=== PATIENT | female | born 1965 | race African-American/Black ===

== ENCOUNTER → 2016-09-17 | Outpatient (CLI) | payer OTHER ==
[~2016-09-17] VITALS: Ht 152.4 cm; Wt 70.9 kg
[~2016-09-17] MED LIST: ACCUNEB SO1.25 MG/1 INH; ACETAMINOPHEN325 M1 PO; ALEVE220 M1 PO; AMLODIPINE-BEN1 EAC5 PO; AZOR 10-20 MG1 EACH PO; COLACE 100 MG100 MG PO; COLACE100 MG PO; DILAUDID 2 MG TA2 MG PO; EXCEDRIN CAPLE1 EACH PO; GLUCOPHAGE1000 MG PO; HYDROCHLOROTHIA25 M1 PO; HYDROXYZINE HCL25 M1 PO; IBUPROFEN 800800 M1 PO; JANUVIA25 MG PO; LIDODERM 5%1 PATC1 TRANSDERM; LORATIDINE 10 M10 M1 PO; METHADONE HCL 110 M1 PO; METHOCARBAMOL750 MG PO; MIRALAX17 GM PO; MOM PO; NAPROSYN250 MG PO; NEURONTIN 300300 M1 PO; NEURONTIN 400M400 M2 PO; NEURONTIN600 MG PO; NORFLEX100 MG PO; OMEPRAZOLE 20 M20 M1 PO; ONDANSETRON HCL4 M2 PO; ORPHENADRINE C100 M2 PO; OXYCODONE HCL 55 MG PO; OXYCODONE HCL10 MG PO; OXYCODONE HCL5 MG PO; OXYCODONE-APAP1 EAC4 PO; OXYCONTIN10 M1 PO; PENICILLIN VK500 MG PO; PROTONIX40 M1 PO; ROBAXIN 750 MG750 MG PO; SENNA PO; T:SLIM1 EAC1 SUBQ; [UNRECOGNIZED DRUG - OTHER] PO
--- NOTE | ~2016-09-17 | HPC ---
[facility] [place] [address] PAIN MANAGEMENT CONSULTATION Name: EVI HILL Room #: REG [facility] M.R.#: [id number] Admission: 09/17/16 Attend Phys: Morteza Shea MD Discharge: Date of : 63 Report #: [id number] THIS REPORT FOR: //name// CC: Magaly Shea Anthony PINEDA DATE OF SERVICE: 09/17/2016 DATE OF SERVICE: 09/17/2016 Followup visit for adjustment of spinal cord stimulator and management of high risk medications. The patient returns to pain clinic today walking with a cane. She has had periods where she has done quite a bit better since her stimulator placement, but has recently been complaining of increased pain, quite severe exacerbation of radiculopathy. She has had some trouble getting coverage in her right leg with her stimulator and her [employer] school admissions representative here today reprogrammed her spinal cord stimulator. Pain score is 7/10, aching and throbbing, worse with standing and walking. She continues on some medication, which I provide for her under terms of an opioid agreement. CURRENT MEDICATIONS: Currently prescribed are OxyContin 10 mg b.i.d., oxycodone 10 every q. 6 hours, gabapentin 600 mg t.i.d., orphenadrine at h.s. RECOMMENDATIONS: I have agreed to provide her with oxycodone continuing for another couple of months, but I would like her to begin the tapering. We can let her use long-acting during the day and she can still use for breakthrough tablets. I will give her total of 50 mg of oxycodone or MME of 75 mg per day. Our goal, we continue tapering medication. We talked about the importance of trying to regain ____. She does have ____ goals, so we will keep trying to see if she can accomplish that. PHYSICAL EXAMINATION: She is pleasant. She is more relax and I have seen her in some time. Her blood pressure is 142/82, heart rate is 93 and BMI is 30.5. She is able to move from a sitting to standing position, but walks with a cane and she has antalgic features. She has limited range of motion. Back remains tender. Straight leg raising is positive. IMPRESSION: 1. Chronic intractable low back pain with radiculopathy status post spinal cord [address] [address] PAIN MANAGEMENT CONSULTATION Name: EVI HILL Room #: REG [facility] Obdulia.#: [id number] Admission: 09/17/16 Attend Phys: Morteza Shea MD Discharge: Date of : 63 Report #: [id number] stimulator placement. 2. Management of high risk medication. 3. History of depression. 4. Hypertension. 5. Gastroesophageal reflux disease. 6. Insulin-dependent diabetes on insulin pump. PLAN: Follow up in 2 months. Two months worth of medication is provided. RECOMMENDATIONS: Today, I reviewed important issues related to the use of opioids and other potent, centrally-acting medications for the treatment of pain. Rationale for the use of medication is to reduce pain and improve daily activities and function. These activities, individualized for each patient, include simple activities of daily living, improvement in work capabilities, increased involvement in family and other social activities. Improvement in psychosocial elements of chronic pain were discussed in a broader conversation of wellness that included nonpharmacologic measures to manage pain, suffering and efforts to enhance well being. Remaining as physically active as possible for age and ability plays a tremendous role in the management of chronic pain. This was encouraged. We reviewed potential medication side effects, toxicities and drug interactions, employing strategies to manage problems identified. Pain medications have potential side effects, and patients should exercise caution when operating machinery or driving. We discussed in detail the dramatic increase in the Emergency Room visits, hospitalizations and deaths related to misuse and diversion of prescription pain medications in [place]. This opioid crisis in [place] requires both physicians and patients alike to safely use all medications. Safeguarding of medications by keeping them safely locked up or out of reach of others is a critical patient responsibility to ensure that medications are not diverted to others. We discussed the Center for Disease Control (CDC) guidelines for safe use of opioids and the efforts to standardize opioid prescribing to prevent complications. These include guidelines which we strive to meet. They include the standardization of various opioids to morphine milligram equivalents (MME) and also stress the use of the lowest effective dose. Efforts to remain within daily maximum dosing guidelines will also be of focus of treatment. Addiction versus therapeutic use of medication includes routine followup, single prescriber, single pharmacy and the use of random drug screens and other tools to ensure safe prescribing. A signed agreement outlying these issues has been reviewed and remains on the patient chart. Prescriptions were provided today under terms of that agreement, and followup for her is planned in 3 months. I have also given her information regarding programs that are available through [facility] and suggested either chair yoga as the start for mobility or pablito chi. <ELECTRONICALLY SIGNED> By: Morteza Shea MD 10/10/16 1130 [id number] Morteza Shea MD /nt
[2016-09-17 11:28] VITALS: BP 142/84
== END | disposition home or self-care (01) ==
LOC: PAIN 06:40
DX: M54.16 Radiculopathy, lumbar region (principal); G89.29 Other chronic pain; I10 Essential (primary) hypertension; E11.9 Type 2 diabetes mellitus without complications; F32.9 Major depressive disorder, single episode, unspecified; K21.9 Gastro-esophageal reflux disease without esophagitis; F17.200 Nicotine dependence, unspecified, uncomplicated; Z79.4 Long term (current) use of insulin; Z96.9 Presence of functional implant, unspecified

== ENCOUNTER → 2017-02-11 | Outpatient (CLI) | payer OTHER ==
[~2017-02-11] VITALS: Ht 152.4 cm; Wt 72.1 kg
--- NOTE | ~2017-02-11 | HPC ---
[facility] [address] [address] PAIN MANAGEMENT CONSULTATION Name: EVI HILL Room #: REG [facility]..#: [id number] Admission: 02/11/17 Attend Phys: Morteza Shea MD Discharge: Date of : 63 Report #: [id number] THIS REPORT FOR: //name// CC: Magaly Shea DATE OF SERVICE: 02/11/2017 Followup visit for post-laminectomy syndrome. The patient returns to pain clinic today for renewal of medication under terms of our opioid agreement. She is currently taking OxyContin 10 mg b.i.d. and oxycodone IR one 10 mg tablet 4-5 times daily. This is a total therefore of 60 mg of oxycodone equal to 90 morphine milligram equivalents right at the CDC guideline top level recommendation. Urine drug screen will be performed today. We talked about the importance of safeguarding her medication. We have given her physical therapy in the past and have asked her to continue to follow up on that. She says the pain score today is 6/10. She has still ongoing low back pain, bilateral leg pain with throbbing all the way to her toes. She seems better; however, and moves with a little bit more ease. PHYSICAL EXAMINATION: VITAL SIGNS: Blood pressure 152/78, heart rate 91. BMI is 31. She is wearing dark glasses in the office. She has tenderness across her low back. Straight leg raising is positive. IMPRESSION: 1. Post-laminectomy syndrome with radiculopathy. 2. Status post [employer] spinal cord stimulator placement. 3. Management of high risk medication. 4. Depression and anxiety. Followup visit is planned in 3 months. Urine drug screen will be reviewed before that office visit. By: [id number] Morteza Shea MD /nt
[2017-02-11 11:11] VITALS: BP 152/78
== END | disposition home or self-care (01) ==
LOC: PAIN 06:41
DX: M96.1 Postlaminectomy syndrome, not elsewhere classified (principal); M54.16 Radiculopathy, lumbar region; Z98.890 Other specified postprocedural states; F11.20 Opioid dependence, uncomplicated; F32.89 Other specified depressive episodes; F41.9 Anxiety disorder, unspecified; F17.200 Nicotine dependence, unspecified, uncomplicated; Z88.8 Allergy status to other drugs, medicaments and biological substances; Z79.899 Other long term (current) drug therapy

== ENCOUNTER → 2017-04-08 | Outpatient (CLI) | payer OTHER ==
[~2017-04-08] VITALS: Ht 152.4 cm; Wt 72.6 kg
[~2017-04-08] MED LIST changes: +GLIPIZIDE ER10 MG PO
--- NOTE | ~2017-04-08 | HPC ---
[facility] [address] [address] PAIN MANAGEMENT CONSULTATION Name: EVI HILL Room #: REG [facility] M..#: [id number] Admission: 04/08/17 Attend Phys: Morteza Shea MD Discharge: Date of : 63 Report #: [id number] THIS REPORT FOR: //name// CC: Magaly Shea DATE OF SERVICE: 04/08/2017 DATE OF SERVICE: 04/08/2017 Followup visit for post-laminectomy syndrome, now with complaints of bilateral thumb pain. HISTORY OF PRESENT ILLNESS: The patient returns to clinic today with her sister. She was in clinic for a 25-minute consultation about her chronic pain. We spent a good deal of that time talking about opioids, proper use, safeguarding, opioid crisis, guidelines, managing side effects. The patient reports that she gets important relief from her pain medication, which allows her to do more during the day. She denies any significant side effects and she understands how critical it is for her to safeguard her medication. Her daily dose is 75 morphine milligram equivalents. She takes a single OxyContin per day to help her through the day and then uses oxycodone 10 for breakthrough pain, no more than 4 times daily. This totals 50 mg of oxycodone, which is a morphine milligram equivalent of 75 under the CDC guideline. Urine drug screens have been performed and we will continue to keep a close eye on her use. She has been given the advice to use the lowest effective dose. I explained the possibility of injecting along the flexor tendon of the left thumb and right thumb where she has maximal tenderness and likely tenosynovitis. She is not interested in injections and she was therefore referred for an evaluation and treatment by the occupational therapist at the [facility]. Hand therapy and ____ was suggested and modalities p.r.n. In order to illustrate the importance of using her medication carefully, we reviewed a couple of examples of patients who developed addictive behaviors. Her sister feels that she is using appropriately and seen no addiction or opioid use disorder type behavior. She has been on time for her medication. PHYSICAL EXAMINATION: Affect is pleasant, alert and oriented. She complains of very little pain in her back and her leg at this time. She has tenderness bilaterally over the thenar eminence. This extends up into the thumb. She has a weak lace roller. Sensation is intact. There are no palpable nodules, no swelling or inflammation. [facility] [address] [place] [address] PAIN MANAGEMENT CONSULTATION Name: EVI HILL Room #: REG CL Richard.#: [id number] Admission: 04/08/17 Attend Phys: Morteza Shea MD Discharge: Date of : 63 Report #: [id number] IMPRESSION: 1. Bilateral tenosynovitis of the thumb. 2. Chronic back pain, post-laminectomy syndrome. 3. Management of high risk medication. 4. Depression and anxiety, improved. Medications were prescribed today under terms of our agreement, OxyContin 10 mg morning, oxycodone 10 no more than 4 to 5 tablets daily and she was prescribed 130 tablets per month. Followup visit is scheduled in 3 months. By: [id number] Morteza Shea MD /nt
[2017-04-08 10:12] VITALS: BP 143/68
== END | disposition home or self-care (01) ==
LOC: PAIN 03-11 08:26
DX: Z76.0 Encounter for issue of repeat prescription (principal); M65.842 Other synovitis and tenosynovitis, left hand; M65.841 Other synovitis and tenosynovitis, right hand; M96.1 Postlaminectomy syndrome, not elsewhere classified; G89.29 Other chronic pain; F32.89 Other specified depressive episodes; F41.8 Other specified anxiety disorders; F17.210 Nicotine dependence, cigarettes, uncomplicated; Z79.891 Long term (current) use of opiate analgesic; Z88.8 Allergy status to other drugs, medicaments and biological substances; Z98.890 Other specified postprocedural states; Z79.899 Other long term (current) drug therapy

== ENCOUNTER → 2017-05-24 | Outpatient (CLI) | payer OTHER ==
[~2017-05-24] VITALS: Ht 160 cm; Wt 73.0 kg
--- NOTE | ~2017-05-24 | HPC ---
[facility] [place] [address] [place] [address] PAIN MANAGEMENT CONSULTATION Name: EVI HILL Room #: REG [facility] MCornelio.#: [id number] Admission: 05/24/17 Attend Phys: Morteza Shea MD Discharge: Date of : 63 Report #: [id number] THIS REPORT FOR: //name// CC: Magaly Shea DATE OF SERVICE: 05/24/2017 Followup visit for postlaminectomy syndrome. The patient returns to pain clinic today for a long discussion about her ongoing pain. Today, she did not mention her thumb that she had mentioned earlier. Most of her pain is in her back and radiates into the right leg. She has pain in both legs, but the right is more severe. She has a spinal cord stimulator and may be getting supramaximal stimulation. Nhi was here today to work with her device and some reprogramming changes were made, which we will reassess in about 4 days. I have now known the patient for about 2-1/2 years. Her pain complaints have always been fairly dramatic. Pain today is a 9/10, described in some desperation. She is worried that something else may be wrong in her spine. Pain is present with changes in temperature, sitting too long, lying too long, standing too long. She needs to reposition and take medication in order to get through her day. She has had 2 previous back surgeries, the first surgery in 09/2013 and the second surgery in 01/2014. The pain was never completely eliminated following surgery, she had epidural injections with limited improvement and ultimately underwent a spinal cord stimulation trial and spinal cord stimulator was placed with good results initially, it has only been in the last several months that the stimulator has not been as helpful. PAST MEDICAL HISTORY: Hypertension, insulin-dependent diabetes, migraine headaches, seizures, although she has had none for years; and situational depression associated with her ongoing pain. REVIEW OF SYSTEMS: Today is positive for loss of appetite, insomnia, nervousness, depression and numbness and tingling in the lower extremities. PHYSICAL EXAMINATION: Affect is depressed and frustrated. Blood pressure 158/81, heart rate 88. She has got a BMI of 28.5. It is painful to watch her try and get up from a sitting to standing position, which she does very slowly with antalgic movements. When she is standing, she complains of pain when she does not use her cane and crutch. She needs both of them to ambulate. Her gait is markedly antalgic. She has pain across her scar. She has pain in the [address] [address] PAIN MANAGEMENT CONSULTATION Name: EVI HILL Room #: REG [facility]IC[facility] Emery#: [id number] Admission: 05/24/17 Attend Phys: Morteza Shea MD Discharge: Date of : 63 Report #: [id number] location of her battery/pulse generator, which is in the right hip. There is quite a bit of tenderness there. She seems hyperalgesic throughout the lower extremities with diffuse allodynia and hyperalgesia. IMPRESSION: Postlaminectomy syndrome with bilateral lower extremity pain and hyperalgesia. RECOMMENDATIONS: Talked about transitioning off of gabapentin to a different antiseizure medicine, either Lyrica or perhaps the sodium channel suzette carbamazepine or oxcarbazepine. She is very cautious about side effects and wanted literature. I provided her with a website to study the Lyrica and see what she thought. Oxcarbazepine was also given as a name of medication that she could research. None of these medicines will be free of side effects. An epidural steroid injection performed transforaminally, if we can get around her hardware, has been shown to be helpful in other patients and I demonstrated a communication I just recently had with a surgeon regarding spinal cord stimulation's failure that responded nicely to a transforaminal epidural injection for neuropathic pain. This is anecdotal of course, but at this point I would not suggest that we proceed further surgical options or other diagnostic testing until we have eliminated some more straight forward simple treatments. She is already on strong dose of oxycodone and she does not want to increase it, nor do I. Current daily dose of oxycodone is 10 mg morning and evening of OxyContin and 10 mg 4 times daily for breakthrough pain. This equates to a daily dose of 60 mg or 90 morphine milligram equivalents right at the CDC guideline. Plan is to see her back in 4 days after the changes regarding her spinal cord stimulator and we will assess then. By: 1520 18 Morteza Shea MD /nt
[2017-05-24 14:02] VITALS: BP 158/81
== END | disposition home or self-care (01) ==
LOC: PAIN 06:40
DX: M96.1 Postlaminectomy syndrome, not elsewhere classified (principal); M79.662 Pain in left lower leg; M79.661 Pain in right lower leg; I10 Essential (primary) hypertension; E11.9 Type 2 diabetes mellitus without complications; G43.909 Migraine, unspecified, not intractable, without status migrainosus; F32.89 Other specified depressive episodes; F17.200 Nicotine dependence, unspecified, uncomplicated; R56.9 Unspecified convulsions; Z79.4 Long term (current) use of insulin; Z98.890 Other specified postprocedural states; Z88.8 Allergy status to other drugs, medicaments and biological substances; Z79.899 Other long term (current) drug therapy

== ENCOUNTER → 2017-05-27 | Outpatient (CLI) | payer OTHER ==
[~2017-05-27] VITALS: Ht 152.4 cm; Wt 73.0 kg
[~2017-05-27] MED LIST changes: +CYMBALTA30 MG PO; +OXCARBAZEPINE150 MG PO
--- NOTE | ~2017-05-27 | HPC ---
[facility] [place] [address] PAIN MANAGEMENT CONSULTATION Name: EVI HILL Room #: REG [facility] Richard.#: [id number] Admission: 05/27/17 Attend Phys: Morteza Shea MD Discharge: Date of : 63 Report #: [id number] THIS REPORT FOR: //name// CC: Magaly Shea DATE OF SERVICE: 05/27/2017 DATE OF REGISTRATION: 05/27/2017. Followup visit for chronic low back pain with radiculopathy. The patient returns to pain clinic today for further adjustment of her spinal cord stimulator. She was with [employer] fraud representative Nhi for about 45 minutes to an hour. Several programming changes are being performed with hopes that we can give her more sustained improvement. She did have a couple of good days with the new changes. She is tearful today. Smokes heavily of tobacco smoke. She reports that she is severely depressed and is unable to do any of her day-to-day activities. PHYSICAL EXAMINATION: GENERAL: She is tearful. VITAL SIGNS: Her blood pressure is 154/78, heart rate is 91, BMI is 31.4. MUSCULOSKELETAL: She has pain across the low back, bilateral straight leg raising discomfort. She is diffusely tender throughout her legs and hyperalgesic in the lower extremities, once again with diffuse allodynia and hyperalgesia. IMPRESSION: Post-laminectomy syndrome with bilateral lower extremity pain and hyperalgesia. PLAN: 1. Begin Cymbalta 30 mg, continue for 1-2 weeks and then we may double the dose. Try and get her dose to 60-90 mg and see if we can see some improvement in her symptoms. 2. Counseled about smoking. I think that she will be able to manage her pain more effectively if we can get her off tobacco. She has talked to her primary care physician about this. 3. Continue to work with spinal cord stimulator. She had a good trial and I am hopeful that with proper programming, we may be able to find the pattern that will be usual for her in combination with these other treatments. 4. Continue on current medications, OxyContin once daily and shift that long-acting dose to the morning. She did not want to take it twice a day. She can use breakthrough medications as needed. 5. Consider counseling for depression. We will watch how she responds to the [address] [address] PAIN MANAGEMENT CONSULTATION Name: EVI HILL Room #: REG [facility] Emery#: [id number] Admission: 05/27/17 Attend Phys: Morteza Shea MD Discharge: Date of : 63 Report #: [id number] Cymbalta. If she has any worsening of depression or anxiety, she should discontinue the drug and call the office. A followup visit is scheduled for 1 month. By: [id number] Morteza Shea MD /nt
[2017-05-27 15:28] VITALS: BP 164/78
== END | disposition home or self-care (01) ==
LOC: PAIN 06:41
DX: Z46.2 Encounter for fitting and adjustment of other devices related to nervous system and special senses (principal); M96.1 Postlaminectomy syndrome, not elsewhere classified; M79.662 Pain in left lower leg; M79.661 Pain in right lower leg; M54.16 Radiculopathy, lumbar region; F32.89 Other specified depressive episodes; F17.210 Nicotine dependence, cigarettes, uncomplicated; R20.8 Other disturbances of skin sensation; Z88.8 Allergy status to other drugs, medicaments and biological substances; Z79.899 Other long term (current) drug therapy; Z98.890 Other specified postprocedural states

== ENCOUNTER → 2017-10-04 | Outpatient (CLI) | payer OTHER ==
[~2017-10-04] VITALS: Ht 157.5 cm; Wt 73.4 kg
[~2017-10-04] MED LIST changes: +CYMBALTA60 MG PO
--- NOTE | ~2017-10-04 | CRIT ---
[facility] [place] [address] [place] [address] CRITICAL CARE NOTE Name: EVI HILL Room #: REG Andrew Ramos.#: [id number] Admission: 10/04/17 Attend Phys: Morteza Shea MD Discharge: Date of : 63 Report #: [id number] THIS REPORT FOR: //name// CC: Magaly Shea DATE OF SERVICE: 10/04/2017 Followup visit for chronic low back pain, post-laminectomy syndrome with radiculopathy. HISTORY OF PRESENT ILLNESS: The patient returns to clinic today for a 25-minute followup visit. We had a lengthy discussion today about her back pain, her activity levels, her medication and overall wellness. Her back pain remains fairly severe. She scores her pain intensity today as a 5. This is an actually an improvement for her. Her function is improved a bit and she has been babysitting her daughter. Her daughter has another baby arriving in November and mom assumes that she will play some role in the care of the baby as well. She has 3 goals. One is to eventually stop her OxyContin. Her second goal is to control her pain more effectively and the third is to develop an exercise regime. Her impacted pain scores are high and have remained high, including 10/10 for general activity, walking normal work, sleep and enjoyment of life. She is not a fall risk and has not fallen, although she does use a cane. She has hypertension, which has been under treatment. She has been on opioid agreement, which has been signed and reviewed at each visit. Her opioid risk tool score is zero. Nonetheless, despite the use of her medications as mentioned, her functional assessment remains high. She scores a 58/70 for interference of activities of daily living with her pain. We discussed wellness behaviors at some length today. I have recommended that she start a walking program and no more than that at this stage. We have talked about habits at great length. She has had a bad one, smoking cigarettes. At each visit, I have encouraged her to quit and she is now several days off of tobacco completely using Nicorette gum. We talked about strategies to remain off of tobacco. I have told her that if she can develop a walking program and get to [id number] steps per day, doing it routinely each start of the day and stay off of cigarettes that I will guarantee that she will feel better. I rarely guarantee anything in my business, but I think that this would be true. We spent a good deal of time today once again reviewing her medications. She has tapered off of her highest dose, but remains on OxyContin 10 mg in the morning and 3 OxyIRs per day, which she takes intermittently throughout the day. She would like to go off of the long-acting drug in the morning and would prefer to take 4 shorter acting pills per day. I will jose her that request at [address] [address] CRITICAL CARE NOTE Name: EVI HILL Room #: REG [facility] Emery#: [id number] Admission: 10/04/17 Attend Phys: Morteza Shea MD Discharge: Date of : 63 Report #: [id number] this visit and her dose will remain at 60 morphine mg equivalents in combination with Cymbalta, which we will up from 60 to 90 and gabapentin, which is at 600 mg 3 times a day. At followup visit, I am going to taper her further to 3 OxyContin 10 mg tablets per day with efforts to accomplish her goal of going off of oxycodone. PHYSICAL EXAMINATION: GENERAL: She is pleasant and alert and oriented, without signs of overmedication or depression today. I have seen her worse. VITAL SIGNS: Blood pressure of 150/82, heart rate 82 and her BMI is 29.6. She has gained a bit of weight. MUSCULOSKELETAL: She walks with a cane with antalgic features, has pain across her back and scar and positive straight leg raising discomfort bilaterally. With stiffness, it is worse on the left as it has been in the past. IMPRESSION: 1. Chronic low back pain with post-laminectomy syndrome. 2. Chronic depression, improved on Cymbalta. We will increase the dose slightly. I believe this also has helped her pain. 3. Tobaccoism with continued counseling. 4. Spinal cord stimulator. She has had multiple adjustments, I am not sure how much that device is helping her at this point, but she believes some. 5. Management of high risk medication under terms of written opioid agreement. Followup visit planned in 3 months. Dated prescriptions provided. A 25-30 minute consultation visit. <ELECTRONICALLY SIGNED> By: Morteza Shea MD 10/27/17 1640 00 0051 Morteza Shea MD /nt
[2017-10-04 10:56] VITALS: BP 150/82
== END ==
LOC: PAIN 06:54
DX: M96.1 Postlaminectomy syndrome, not elsewhere classified (principal); M54.5 Low back pain; F32.9 Major depressive disorder, single episode, unspecified; Z71.6 Tobacco abuse counseling; Z79.899 Other long term (current) drug therapy

== ENCOUNTER → 2018-03-28 | Outpatient (CLI) | payer OTHER ==
[~2018-03-28] VITALS: Ht 152.4 cm; Wt 69.3 kg
--- NOTE | ~2018-03-28 | HPC ---
[facility] [place] [address] PAIN MANAGEMENT CONSULTATION Name: EVI HILL Room #: REG [facility] MCornelio.#: [id number] Admission: 03/28/18 Attend Phys: Morteza Shea MD Discharge: Date of : 63 Report #: [id number] THIS REPORT FOR: //name// CC: Magaly Shea DATE OF SERVICE: 03/28/2018 Followup visit for post-laminectomy syndrome. The patient was in the pain clinic today for a 25-minute followup visit. She reports that she is active with her son and also helps take care of her grandchildren. Pain is worse as the day goes on, and she has a lot of pain when she drives. She has to do a lot of driving for her family activities. When she gets out of the car, it is very difficult for her to get walking. Pain is in her back and down into her leg. She is trying to walk as I have consulted at each visit the importance of keeping active. We have talked again about wellness behaviors. She continues to smoke. She wanted Wellbutrin, but she is already on 3 centrally acting medication, and I did not want to switch her off Cymbalta, which has done so much for her depression. I have seen her when she is severely depressed, and I do not think that we should make changes right now. MEDICATIONS: Her medications provided for her under terms of an opioid agreement include Oxycodone 10 mg 4 times daily. Cymbalta 60 mg once daily and Cymbalta 30 mg plus a 60 mg tablet to make it a total of 90. Gabapentin has taken 60 mg 3 times daily. ALLERGIES: None. PHYSICAL EXAMINATION: Her affect is pleasant and calm. She does not appear overly depressed. She reports anxiety, however. She is able to independently move from sitting to standing position, walks without her cane, but her gait is antalgic. She appears to be a fall risk without her cane. Her blood pressure 133/71, heart rate 92, respirations 14. Pain across the low back and her scar. The battery is located in the lower back, is nontender. Straight leg raising is markedly positive on the right reproducing pain in the L5-S1 distribution. IMPRESSION: 1. Chronic back pain with radiculopathy. 2. Spinal cord stimulator which is helping, although she still requires use of opioid medication. 3. Chronic depression, improved, on Cymbalta. 4. Management of high risk medications under terms of written opioid agreement. [address] [address] PAIN MANAGEMENT CONSULTATION Name: EVI HILL Room #: REG LETICIA Emery#: [id number] Admission: 03/28/18 Attend Phys: Morteza Shea MD Discharge: Date of : 63 Report #: [id number] PLAN: 1. I renewed her medications as noted, gabapentin, Cymbalta and oxycodone. 2. X-ray of the spine performed in the clinic today to check the spinal cord stimulator leads, reveals that the leads are in excellent location. 3. Renewal of medication and follow up in 3 months. I reviewed the opioid crisis with her, reviewed the CDC guidelines. I talked about her importance of safeguarding medications and her responsibilities. She has no significant side effects of the medication and is grateful for the improvement in her day-to-day function that it provides. No evidence of misuse or abuse. I did note that her prescription was not on the [facility] website. We made a phone call to her pharmacy, and they have confirmed that she is receiving medication only from us at least at that pharmacy. Followup visit planned in 3 months. By: [id number] Morteza Shea MD /nt
[2018-03-28 10:46] VITALS: BP 133/71
== END ==
LOC: PAIN 06:24
DX: M54.16 Radiculopathy, lumbar region (principal); G89.29 Other chronic pain; F32.9 Major depressive disorder, single episode, unspecified; Z87.891 Personal history of nicotine dependence

== ENCOUNTER → 2018-06-27 | Outpatient (CLI) | payer OTHER ==
[~2018-06-27] VITALS: Ht 152.4 cm; Wt 71.2 kg
--- NOTE | ~2018-06-27 | HPC ---
[facility] [address] [address] PAIN MANAGEMENT CONSULTATION Name: EVI HILL Room #: REG [facility] M..#: [id number] Admission: 06/27/18 Attend Phys: Sidra Bone Discharge: Date of : 63 Report #: [id number] THIS REPORT FOR: //name// CC: Sidra Shea MD DATE OF SERVICE: 06/27/2018 REASON FOR VISIT: Followup visit today for post-laminectomy syndrome. HISTORY OF PRESENT ILLNESS: The patient is in pain clinic today for followup for her medication management for her low back pain and radicular leg pain. The patient states that her right leg is worse than her left. She tells me that her medications are helpful. She is able to do things around the house despite her pain score of 6/10 that is worse with walking and standing and doing stairs. She does use a cane when she is outside of her house. She also has a spinal cord stimulator that the patient thinks is very helpful. She does not know what she would do without it. She said she was in a bad place before she had her spinal cord stimulator placed and thinks that it is helpful and wears it 22/03. ALLERGIES: DILANTIN. CURRENT LIST OF MEDICATIONS: Oxycodone IR 10 mg up to 4 times a day, Cymbalta 30+ a 60 equals 90 mg daily, Neurontin 600 mg twice a day, glipizide 10 mg daily, Colace, Protonix, albuterol, Claritin, amlodipine, benazepril 10/40 daily, hydrochlorothiazide 25 mg daily. PQRS: 1. History of osteoarthritis in her back and lower extremities. Denies rheumatoid arthritis. 2. 5 feet 0. weight 157, BMI is 30. 3. Vital signs: Blood pressure 149/71, pulse is 85, respirations 14, oxygen sat is 98. Pain score is 6/10. 4. Denies dizziness and needs a cane with walking when outside of her home. The patient states she has fallen in the last 3 months. No injury noted. No hospitalizations or doctor visits from that fall. 5. Denies blood thinners. 6. Does have a history of hypertension. 7. Opioid therapy greater than 6 weeks and a signed opioid contract on the chart. 8. Risk assessment is low. 9. Her functional assessment is 56/70. 10. Denies recreational drug use. Does smoke cigarettes and does not use [address] [address] PAIN MANAGEMENT CONSULTATION Name: EVI HILL Room #: REG [facility].#: [id number] Admission: 06/27/18 Attend Phys: Sidra Bone Discharge: Date of : 63 Report #: [id number] alcohol products. [place] chart. We ran the patient's name several ways, so I called [facility] and she has filled appropriately from only one provider that being Dr. Morteza Shea. Last fill was noted to be 05/27/2018, so the patient is on time with no aberrant behaviors. PHYSICIAN EXAMINATION: GENERAL: The patient is a pleasant, alert and oriented, black female without signs of overmedication or depression today. VITAL SIGNS: Blood pressure 149/71, pulse 85, respirations 14, oxygen sat 98. MUSCULOSKELETAL: She walks with a cane with antalgic features. Pain across her back, tenderness. Able to positive straight leg raise with some discomfort bilaterally in her lower extremities, right greater than left. ASSESSMENT: 1. Chronic pain with radiculopathy, post-laminectomy syndrome. 2. Spinal cord stimulator. 3. Chronic depression. 4. High risk medication management. We reviewed the fact that opiate medications are being used to provide analgesia adequate to support activities of daily living, not attempting to achieve a specific pain score on the 0-10 Visual Analog Scale. The current opiate medications are providing sufficient analgesia to allow the patient to participate in activities of daily living. The patient is not exhibiting any aberrant behavior suggestive of drug diversion. The patient is not having any adverse reactions to medications. The patient is not suffering from daytime somnolence or mental acuity changes. The patient is managing opiate-induced constipation with appropriate wxsu-ecl-bjgokwy agents and dietary considerations. The patient was counseled on concern for caution with operating a motor vehicle while using opiate medications. A physical exam was performed and the patient's functional status was evaluated. All patients with back pain were advised against the bed rest greater than 4 days and were advised to return to normal activities. Pain score assessment was noted and the treatment plan was reviewed with the patient. All current medications, both prescribed and OTC were reviewed and reconciled on the electronic medical record. Tobacco screening was accomplished and smoking cessation was advised when indicated. BMI was noted and diet/exercise modification was recommended for all patients following outside normal parameters. I reviewed with the patient today their responsibilities to safeguard prescription medications, reviewed their responsibility to utilize medications only as prescribed by the physician. They are to seek and receive pain [address] [address] PAIN MANAGEMENT CONSULTATION Name: EVI HILL Room #: REG LETICIA Emery#: [id number] Admission: 06/27/18 Attend Phys: Sidra Bone Discharge: Date of : 63 Report #: [id number] medications only from 1 physician group ( [facility]). They are to use 1 pharmacy and keep the clinic informed if they change pharmacies. Their responsibilities include making followup visits in a timely fashion and to avoid abrupt discontinuation of medication usage. Their responsibilities further include bringing their medications (bottles from the pharmacy with residual pills) to the visit for possible confirmation of pill counts and the patient understands it is their responsibility to submit to random drug screens to ensure both that the medications prescribed are present, and that no other controlled substances are present. All prescriptions provided today were generated electronically. PLAN: 1. Reviewed the medications with the patient today. The patient tells me that she is taking gabapentin twice a day morning and evening, therefore we will change her prescription for her gabapentin from 3 times a day to 2 times a day. The patient takes Cymbalta 90 mg total a day, states that is very helpful and takes OxyIR 10 mg up to 4 times a day as needed for pain. We will renew her prescriptions today for a total of 3 months for her oxycodone #120 given for today, 4-week and 8-week release; gabapentin 600 mg, #180 with 2 additional refills; Cymbalta 30, #90 with 2 additional refills; Cymbalta 60, #90 with 2 additional refills. The patient will follow up with either me or the collaborative practice Dr. Shea for her medication refills. The patient was reminded to keep her medications safeguarded at all times. 2. The patient was also given back exercises to be done at home to improve her mobility and her strength. She tells us that the Medicare guidelines have changed and she was unable to do physical therapy at an outside clinic patient. She states that they told her she had to be in a facility in order to have physical therapy done through Medicare. This is new to us, but we did her give the back exercises to do at home. 3. The patient will be seen in 3 months for followup visit for medication management. 4. The patient was seen in collaboration today with Dr. Morteza Shea. <ELECTRONICALLY SIGNED> By: Sidra Bone 06/28/18 0723 1113 Sidra Bone /nt
[2018-06-27 10:14] VITALS: BP 149/71
== END ==
LOC: PAIN 08:12
DX: M96.1 Postlaminectomy syndrome, not elsewhere classified (principal); M54.16 Radiculopathy, lumbar region; G89.29 Other chronic pain; F32.9 Major depressive disorder, single episode, unspecified; Z79.899 Other long term (current) drug therapy; Z96.9 Presence of functional implant, unspecified

== ENCOUNTER → 2018-09-29 | Outpatient (CLI) | payer OTHER ==
[~2018-09-29] VITALS: Ht 152.4 cm; Wt 70.3 kg
[2018-09-29 10:04] VITALS: BP 150/74
--- NOTE | 2018-09-29 10:10 | NUR ---
Pain Clinic Assessment: 1. History of Osteoarthritis: Not Applicable History of Rheumatoid Arthritis: Not Applicable 2. Height: 5 ft. 0 in. 152.4 cm. Weight: 155.0 lb. oz. 70.308 kg. Patient's BMI: 30.3 3. Vital Signs: BP: 150/74 Pulse: 81 Resp: 16 Temp: 02 Sat: 96 ECG Mon: 4. Pain Intensity: 6 5. Fall Risk: Dizziness: N Needs help standing or walking: N Fallen in the last 3 months: N Fall risk comments: 6. Patient on Blood Thinner: None 7. History of Hypertension: Y 8. Opioid Therapy greater than 6 weeks: Y Opiate Contract Signed: 08/17/16 9. Risk Assessment Tool Provided: 0 LOW RISK 10. Functional Assessment Tool: 11. Recreational Drug Use: Never Drug Type: Tobacco Use: Current Some Day Smoker Tobacco Type: Cigarettes Amount or Packs/day: 1/2 PACK How Many Years: Alcohol Use: No Frequency: Quant:
--- NOTE | 2018-10-03 07:50 | HPC ---
[facility] [address] [place] [address] PAIN MANAGEMENT CONSULTATION Name: EVI HILL Room #: REG [facility] Richard.#: [id number] Admission: 09/29/18 Attend Phys: Sidra Bone Discharge: Date of : 63 Report #: [id number] THIS REPORT FOR: //name// CC: Sidra Bone Magaly MurciaPantoja DATE OF SERVICE: 09/29/2018 CHIEF COMPLAINT: Low back pain, lumbar radiculopathy, status post laminectomy syndrome. HISTORY OF PRESENT ILLNESS: The patient returns to the Pain Clinic today for followup for her medication management for her ongoing low back pain and radicular leg pain. She tells me that her pain score today is 6/10. Her right leg is more bothersome today and her lower back stating the right leg has been bothered by the cold weather we are having. She tells me her pain is worse when she is walking, doing stairs and her medications are helpful and describes her pain as a throbbing, achy, sharp shooting pain. She tells me she does not have any constipation issues that are not relieved by some uwwo-hnv-hxlxmuh medicines. She has had constipation problems her entire life, even prior to taking narcotics and she does not have any daytime sleepiness. The patient tells me she is doing quite well overall and just like a refill today of her medications. ALLERGIES: To DILANTIN. LIST OF MEDICINES: OxyIR 10 mg up to 4 times a day, Cymbalta 90 mg daily, gabapentin 600 mg twice a day, glipizide 10 mg daily, Colace as needed, Protonix 40 mg daily, albuterol inhaler as needed, Claritin 10 mg daily, amlodipine/benazepril 10/40 daily and hydrochlorothiazide 25 mg daily. PQRS: 1. She has a history of osteoarthritis in her back and lower extremities. Denies any rheumatoid arthritis. 2. Height is 5 feet, weight is 155 and BMI is 30. 3. Vital signs: Blood pressure 150/74, pulse is 81, respirations 16 and oxygen sat is 96. 4. Pain score 6/10. 5. Fall risk. Denies dizziness, does not need help walking or standing. Has not fallen in the last 3 months. 6. She denies any blood thinners but does take medicines for hypertension. 7. Opioid therapy is greater than 6 weeks; therefore, an opioid signed contract is on her chart. Risk assessment tool is low and her functional assessment is 56/70. 8. The patient denies recreational drug use. She does smoke some cigarettes, half a pack a day and does not drink alcohol. Did check the prescription [address] [address] PAIN MANAGEMENT CONSULTATION Name: EVI HILL Room #: REG LETICIA Emery#: [id number] Admission: 09/29/18 Attend Phys: Sidra Bone Discharge: Date of : 63 Report #: [id number] monitoring system. The patient is filling appropriately with her medications on a timely fashion. She tells me that she does safeguard her medications. There is a drug screen on the chart within the past year. PHYSICAL EXAMINATION: GENERAL: This is a very pleasant 53-year-old female who is alert and orientated. Her affect is appropriate and her speech is fluent. HEENT: Normocephalic and atraumatic. Extraocular eye muscles are intact. Mucous membranes are moist and her hearing is within normal limits. NECK: Without JVD or adenopathy. MUSCULOSKELETAL: She walks with an antalgic gait using a cane. Does complain of some right leg tenderness. Able to straight leg raise with some discomfort. Lower extremity strength judged to be 4/5 on the right and 5/5 in her left major muscle groups. IMPRESSION: 1. Chronic pain with radiculopathy, post-laminectomy syndrome. 2. Spinal cord stimulator. 3. Clinical depression. 4. High risk complex medication management. We reviewed the fact that opiate medications are being used to provide analgesia adequate to support activities of daily living, not attempting to achieve a specific pain score on the 0-10 Visual Analog Scale. The current opiate medications are providing sufficient analgesia to allow the patient to participate in activities of daily living. The patient is not exhibiting any aberrant behavior suggestive of drug diversion. The patient is not having any adverse reactions to medications. The patient is not suffering from daytime somnolence or mental acuity changes. The patient is managing opiate-induced constipation with appropriate vxbc-dcj-owkecyd agents and dietary considerations. The patient was counseled on concern for caution with operating a motor vehicle while using opiate medications. A physical exam was performed and the patient's functional status was evaluated. All patients with back pain were advised against the bed rest greater than 4 days and were advised to return to normal activities. Pain score assessment was noted and the treatment plan was reviewed with the patient. All current medications, both prescribed and OTC were reviewed and reconciled on the electronic medical record. Tobacco screening was accomplished and smoking cessation was advised when indicated. BMI was noted and diet/exercise modification was recommended for all patients following outside normal parameters. I reviewed with the patient today their responsibilities to safeguard prescription medications, reviewed their responsibility to utilize medications only as prescribed by the physician. They are to seek and receive pain [address] [address] PAIN MANAGEMENT CONSULTATION Name: EVI HILL Room #: REG [facility].#: [id number] Admission: 09/29/18 Attend Phys: Sidra Bone Discharge: Date of : 63 Report #: [id number] medications only from 1 physician group ( [facility]). They are to use 1 pharmacy and keep the clinic informed if they change pharmacies. Their responsibilities include making followup visits in a timely fashion and to avoid abrupt discontinuation of medication usage. Their responsibilities further include bringing their medications (bottles from the pharmacy with residual pills) to the visit for possible confirmation of pill counts and the patient understands it is their responsibility to submit to random drug screens to ensure both that the medications prescribed are present, and that no other controlled substances are present. All prescriptions provided today were generated electronically. PLAN: 1. We discussed treatment options today. We reviewed her medications. Scripts were given for gabapentin, which she takes 600 mg twice a day and Cymbalta 90 mg daily. No scripts were needed for this, though she will check with her pharmacy. She should have 2 refills and there was a deviation noted on her refill bottle, so she will check with the pharmacist regarding this. 2. Scripts were given for her OxyIR 10 mg. The patient to take 2-3 tablets a day, quantity 120. Release today and in 4 weeks and 8 weeks. The patient will continue to try to take 3 tablets a day instead of 4, but the cold weather has made this difficult. She will attempt this over the next 3 weeks. 3. The patient will be seen in 3 months for medication refill. The patient is seen today in collaboration with Dr. Saul James. <ELECTRONICALLY SIGNED> By: Sidra Bone 10/03/18 0750 [id number] Sidra Bone /nt
== END ==
LOC: PAIN 07:32
DX: M54.16 Radiculopathy, lumbar region (principal); M96.1 Postlaminectomy syndrome, not elsewhere classified; F32.9 Major depressive disorder, single episode, unspecified; Z79.899 Other long term (current) drug therapy

== ENCOUNTER → 2018-12-26 | Outpatient (CLI) | payer OTHER ==
[~2018-12-26] VITALS: Ht 152.4 cm; Wt 71.7 kg
[2018-12-26 11:08] VITALS: BP 152/76
--- NOTE | 2018-12-26 11:21 | NUR ---
Pain Clinic Assessment: 1. History of Osteoarthritis: Not Applicable History of Rheumatoid Arthritis: Not Applicable 2. Height: 5 ft. 0 in. 152.4 cm. Weight: 158.0 lb. oz. 71.668 kg. Patient's BMI: 30.9 3. Vital Signs: BP: 152/76 Pulse: 72 Resp: 16 Temp: 02 Sat: 97 ECG Mon: 4. Pain Intensity: 8 5. Fall Risk: Dizziness: N Needs help standing or walking: Y Fallen in the last 3 months: Y Fall risk comments: 6. Patient on Blood Thinner: None 7. History of Hypertension: Y 8. Opioid Therapy greater than 6 weeks: Y Opiate Contract Signed: 08/17/16 9. Risk Assessment Tool Provided: 0 LOW RISK 10. Functional Assessment Tool: 11. Recreational Drug Use: Never Drug Type: Tobacco Use: Current Some Day Smoker Tobacco Type: Amount or Packs/day: How Many Years: Alcohol Use: No Frequency: Quant:
--- NOTE | 2018-12-27 08:30 | HPC ---
[facility] [address] [place] [address] PAIN MANAGEMENT CONSULTATION Name: EVI HILL Room #: REG [facility] Yuly#: [id number] Admission: 12/26/18 ������������������ Attend Phys: Sidra Bone Discharge: ������������������ Date of : 63 Report #: [id number] THIS REPORT FOR: //name// CC: Sidra Chambersla Anthony DATE OF SERVICE: 12/26/2018 CHIEF COMPLAINT: Low back pain and lumbar radiculopathy, status post laminectomy syndrome. HISTORY OF PRESENT ILLNESS: The patient returns to the pain clinic today for a refill of her medication management. She tells me that she fell last Wednesday from her steps and hit some boxes because she is moving. She tells me that her right side is hurting as well as her leg. She does have ongoing low back pain and her right knee is hurting her today. Because of this fall, her pain is an 8/10, mostly a throbbing, aching, sharp pain; worse with walking and stairs. Her medication is helpful. She is using her cane today, as she uses most days helping her ambulate. The patient tells me she is not having any problems with constipation or daytime sleepiness. She would like a refill of her medications today. The patient tells me that she is moving out of her house. She will be moving in with family members temporarily until she can find a housing situation after she turns 54 later this year that will accept her with her disability payments that she receives. The patient tells me that this is one reason why she did fall because she has so much going on in her house and things were out of place. ALLERGIES: DILANTIN. CURRENT MEDICATIONS: OxyIR 10 mg p.r.n., Cymbalta 90 mg daily, gabapentin 600 mg b.i.d., glipizide 10 mg daily, Colace 100 mg b.i.d., Protonix 40 mg daily, albuterol inhaler as needed, Claritin p.r.n., amlodipine and benazepril 10/40 daily and hydrochlorothiazide 25 mg daily. PQRS: 1. She has a history of osteoarthritis in her back and her lower extremities. Denies any rheumatoid arthritis. 2. Height is 5 feet, weight is 158 and BMI is 30. 3. Vital signs, 152/76, pulse is 72, respirations 16 and oxygen sat is 97. 4. Pain score is 8/10. 5. Fall risk, denies dizziness. Does not need help walking or standing. She uses a cane and she fell in the last week. 6. The patient is not on any blood thinners. 7. The patient does take medicine for hypertension. 8. Opioid therapy is greater than 6 weeks. Therefore, an opioid signed [address] [address] PAIN MANAGEMENT CONSULTATION Name: EVI HILL Room #: REG LETICIA Emery#: [id number] Admission: 12/26/18 ������������������ Attend Phys: Sidra Bone Discharge: ������������������ Date of : 63 Report #: [id number] contract is on the chart. Her risk assessment tool is low and her functional assessment is 56/70. 9. Recreational drug use, she denies. She is a current smoker and we did talk about smoking cessation or at least decreasing her smoking to aid in her pain control, and she does not drink alcohol. We did check the prescription monitoring system. The patient is filling appropriately. We will check a urine drug screen on this patient today because she has not had one in the past year. PHYSICAL EXAMINATION: GENERAL: This is a very pleasant 53-year-old female who is alert and orientated. Her affect is appropriate. Her speech is fluent. HEENT: Normocephalic, atraumatic. Extraocular eye muscles are intact. Mucous membranes are moist. NECK: Without JVD or adenopathy. MUSCULOSKELETAL: The patient walks with an antalgic gait using a cane. She does complain of some right back, lateral right side pain today. No bruising or ecchymosis noted from her recent fall. Also, complains of right hip pain, right knee pain. I did not visualize this for bruising. The patient does complain of significant tenderness. She does have a scar over her spinal cord stimulator in her right buttock. The patient does complain of pain when she is ambulating. Her lower extremity strength judged to be 4/5 in her lower extremities bilaterally. IMPRESSION: 1. Chronic pain with radiculopathy, post-laminectomy syndrome. 2. Spinal cord stimulator. 3. Depression. 4. Recent fall with generalized aches. 5. High-risk medication management under terms of written opioid agreement. We reviewed the fact that opiate medications are being used to provide analgesia adequate to support activities of daily living, not attempting to achieve a specific pain score on the 0-10 Visual Analog Scale. The current opiate medications are providing sufficient analgesia to allow the patient to participate in activities of daily living. The patient is not exhibiting any aberrant behavior suggestive of drug diversion. The patient is not having any adverse reactions to medications. The patient is not suffering from daytime somnolence or mental acuity changes. The patient is managing opiate-induced constipation with appropriate idle-htt-jfnixau agents and dietary considerations. The patient was counseled on concern for caution with operating a motor vehicle while using opiate medications. A physical exam was performed and the patient's functional status was evaluated. All patients with back pain were advised against the bed rest greater than 4 [facility] [address] [place] [address] PAIN MANAGEMENT CONSULTATION Name: EVI HILL Room #: REG [facility].#: [id number] Admission: 12/26/18 ������������������ Attend Phys: Sidra Bone Discharge: ������������������ Date of : 63 Report #: [id number] days and were advised to return to normal activities. Pain score assessment was noted and the treatment plan was reviewed with the patient. All current medications, both prescribed and OTC were reviewed and reconciled on the electronic medical record. Tobacco screening was accomplished and smoking cessation was advised when indicated. BMI was noted and diet/exercise modification was recommended for all patients following outside normal parameters. I reviewed with the patient today their responsibilities to safeguard prescription medications, reviewed their responsibility to utilize medications only as prescribed by the physician. They are to seek and receive pain medications only from 1 physician group ( [facility]). They are to use 1 pharmacy and keep the clinic informed if they change pharmacies. Their responsibilities include making followup visits in a timely fashion and to avoid abrupt discontinuation of medication usage. Their responsibilities further include bringing their medications (bottles from the pharmacy with residual pills) to the visit for possible confirmation of pill counts and the patient understands it is their responsibility to submit to random drug screens to ensure both that the medications prescribed are present, and that no other controlled substances are present. All prescriptions provided today were generated electronically. PLAN: 1. We discussed treatment options with the patient today regarding her recent fall. I encouraged her to use heat or ice and to continue to be as active as possible, not to lie in bed or sit down all day, this will make her soreness worse. The patient verbalizes this and will try to use some heat or ice to her right back and hip area. 2. Prescription is give today for OxyIR 10 mg. The patient to take up to 4 times a day, quantity 120, for release today and in 4-week and 8-week. 3. Dr. Morteza Shea did see the patient as well and also counseled her about decreasing smoking again today. 4. The patient will make a followup appointment in 3 months' time. We also did collect a urine specimen for a random drug screen on this patient today. ��������������������������������������������� <ELECTRONICALLY SIGNED> ���������������������������������������� By: Sidra Bone ��������������������������������������������� 12/27/18 0830 [id number] [id number] Sidra Bone /lupillo
== END ==
LOC: PAIN 06:48
DX: G89.29 Other chronic pain (principal); M54.16 Radiculopathy, lumbar region; M96.1 Postlaminectomy syndrome, not elsewhere classified; Z88.8 Allergy status to other drugs, medicaments and biological substances; Z79.891 Long term (current) use of opiate analgesic; Z96.89 Presence of other specified functional implants; Z79.899 Other long term (current) drug therapy

== ENCOUNTER → 2019-03-27 | Outpatient (CLI) | payer OTHER ==
[~2019-03-27] VITALS: Ht 152.4 cm; Wt 71.4 kg
[2019-03-27 10:16] VITALS: BP 137/83
--- NOTE | 2019-03-27 10:29 | NUR ---
Pain Clinic Assessment: 1. History of Osteoarthritis: Not Applicable History of Rheumatoid Arthritis: Not Applicable 2. Height: 5 ft. 0 in. 152.4 cm. Weight: 157.4 lb. oz. 71.396 kg. Patient's BMI: 30.7 3. Vital Signs: BP: 137/83 Pulse: 72 Resp: 14 Temp: 02 Sat: 98 ECG Mon: 4. Pain Intensity: 5 5. Fall Risk: Dizziness: N Needs help standing or walking: Y Fallen in the last 3 months: N Fall risk comments: 6. Patient on Blood Thinner: None 7. History of Hypertension: Y 8. Opioid Therapy greater than 6 weeks: Y Opiate Contract Signed: 08/17/16 9. Risk Assessment Tool Provided: 1 LOW RISK 10. Functional Assessment Tool: / 11. Recreational Drug Use: Never Drug Type: Tobacco Use: Current Every Day Smoker Tobacco Type: Cigarettes Amount or Packs/day: 0.5 How Many Years: 40 Alcohol Use: No Frequency: Quant:
--- NOTE | 2019-03-28 09:17 | HPC ---
[facility] [address] [place] [address] PAIN MANAGEMENT CONSULTATION Name: EVI HILL Room #: REG LETICIA Emery#: [id number] Admission: 03/27/19 ������������������ Attend Phys: Sidra Bone Discharge: ������������������ Date of : 63 Report #: [id number] THIS REPORT FOR: //name// CC: Sidra Bone [facility] DATE OF SERVICE: 03/27/2019 CHIEF COMPLAINT: Low back pain and lumbar radiculopathy, status post laminectomy syndrome. HISTORY OF PRESENT ILLNESS: This is a very pleasant 53-year-old female who returns to the pain clinic today for refill of her medications that she uses to help treat her ongoing low back pain and bilateral leg pain. She reports a pain score of 5/10 today, mostly an aching, sharp, shooting pain that is exacerbated by walking and doing stairs. Her medications are helpful as well as repositioning. She does use a cane for added support when she walks. She tells me that she has recently moved to a different location. Over the past 2 months, she has had increased activity, so she has had some increased pain, but finally feeling that she is getting back to normal and it is decreased slightly. The patient complains of continued constipation. She tells me she has tried MiraLax or other lmxk-ntb-agtqygr medicines that caused nausea and so has stopped taking that and has been having increased constipation since. ALLERGIES: DILANTIN. CURRENT LIST OF MEDICATIONS: OxyIR 10 mg b.i.d., Cymbalta 90 mg daily, gabapentin 600 mg b.i.d., glipizide, Colace, Protonix, Claritin, amlodipine/benazepril and hydrochlorothiazide. PQRS: 1. The patient has a history of osteoarthritis in her back and lower extremities. She denies any rheumatoid arthritis. 2. Height is 5 feet, weight is 157, BMI is 30. 3. Vital signs 137/83, pulse is 72, respirations 14, oxygen sat is 98. 4. Pain score is 5/10. 5. Denies dizziness. Does use a cane for walking, has not fallen in the last 3 months. 6. The patient is not on any blood thinners, but does take medicine for hypertension. 7. Opioid therapy is greater than 6 weeks; therefore, an opioid signed contract is on the chart. Her risk assessment tool is low. Functional assessment is 55/70. 8. Recreational drug use, she denies. She is a smoker, about a half a pack a day and [place] [address] PAIN MANAGEMENT CONSULTATION Name: EVI HILL Room #: REG [facility] Yuly#: [id number] Admission: 03/27/19 ������������������ Attend Phys: Sidra Bone Discharge: ������������������ Date of : 63 Report #: [id number] According to the prescription monitoring system, the patient is filling appropriately. We did check a random drug screen in the last visit that was appropriate for her medications. PHYSICAL EXAMINATION: GENERAL: This is a pleasant 53-year-old female who is alert and orientated. Affect is appropriate. Her speech is fluent. Pain score today is 5/10. HEENT: Normocephalic, atraumatic. Extraocular eye muscles are intact. Mucous membranes are moist. NECK: Without JVD or adenopathy. MUSCULOSKELETAL: The patient walks with a slightly antalgic gait, using her cane. She does have a spinal cord stimulator battery pack in the right buttocks. Her lower extremity strength judged to be 4/5 in her bilateral lower extremities. She complains of pain across her lumbar spine. IMPRESSION: 1. Chronic pain with radiculopathy, post-laminectomy syndrome. 2. Spinal cord stimulator placement. 3. Depression. 4. High risk medications under terms of written opioid agreement. We reviewed the fact that opiate medications are being used to provide analgesia adequate to support activities of daily living, not attempting to achieve a specific pain score on the 0-10 Visual Analog Scale. The current opiate medications are providing sufficient analgesia to allow the patient to participate in activities of daily living. The patient is not exhibiting any aberrant behavior suggestive of drug diversion. The patient is not having any adverse reactions to medications. The patient is not suffering from daytime somnolence or mental acuity changes. The patient is managing opiate-induced constipation with appropriate serp-rsb-grwzpia agents and dietary considerations. The patient was counseled on concern for caution with operating a motor vehicle while using opiate medications. A physical exam was performed and the patient's functional status was evaluated. All patients with back pain were advised against the bed rest greater than 4 days and were advised to return to normal activities. Pain score assessment was noted and the treatment plan was reviewed with the patient. All current medications, both prescribed and OTC were reviewed and reconciled on the electronic medical record. Tobacco screening was accomplished and smoking cessation was advised when indicated. BMI was noted and diet/exercise modification was recommended for all patients following outside normal parameters. I reviewed with the patient today their responsibilities to safeguard prescription medications, reviewed their responsibility to utilize medications [address] [address] PAIN MANAGEMENT CONSULTATION Name: EVI HILL Room #: REG CL[facility] Emery#: [id number] Admission: 03/27/19 ������������������ Attend Phys: Sidra Bone Discharge: ������������������ Date of : 63 Report #: [id number] only as prescribed by the physician. They are to seek and receive pain medications only from 1 physician group ( [facility]). They are to use 1 pharmacy and keep the clinic informed if they change pharmacies. Their responsibilities include making followup visits in a timely fashion and to avoid abrupt discontinuation of medication usage. Their responsibilities further include bringing their medications (bottles from the pharmacy with residual pills) to the visit for possible confirmation of pill counts and the patient understands it is their responsibility to submit to random drug screens to ensure both that the medications prescribed are present, and that no other controlled substances are present. All prescriptions provided today were generated electronically. PLAN: 1. We discussed treatment options with the patient today. The patient is doing quite well with her current medication regimen. Scripts given today for OxyIR 10 mg #120 for release today, 4-week and 8-week. 2. Scripts given for Cymbalta 30 mg and 60 mg, #90 for 2 additional refills and gabapentin 600 mg b.i.d., #180 with 2 additional refills. These are 3-month supply of medications for 1 year. 3. We did discuss the patient's constipation. The patient tells me some of the medicines make her nauseated. We discussed MiraLax as well as slow movement tea that is anam-jwx-knmftmn at drug store or Senokot or Colace. The patient will try some of these remedies to see if that helps aid in some of her constipation. 4. The patient will return in followup in 3 months. Her morphine mEq according to the CDC guidelines is 60 mg; therefore, she is followed up every 3 months. 5. The patient was seen with Dr. Morteza Shea who collaborated care as well today. ��������������������������������������������� <ELECTRONICALLY SIGNED> ���������������������������������������� By: Sidra Bone ��������������������������������������������� 03/28/19 0917 1152 0550 Sidra Bone /nt
== END ==
LOC: PAIN 06:52
DX: M54.16 Radiculopathy, lumbar region (principal); M54.5 Low back pain; M96.1 Postlaminectomy syndrome, not elsewhere classified; F32.9 Major depressive disorder, single episode, unspecified; Z79.891 Long term (current) use of opiate analgesic

== ENCOUNTER → 2019-06-26 | Outpatient (CLI) | payer OTHER ==
[~2019-06-26] VITALS: Ht 160 cm; Wt 72.9 kg
[~2019-06-26] MED LIST changes: +METFORMIN HCL500 M2 PO; +MOVANTIK25 MG PO; +TRESIBA FL100 UNIT/1 SUBQ
[2019-06-26 13:07] VITALS: BP 123/72
--- NOTE | 2019-06-26 13:23 | NUR ---
Pain Clinic Assessment: 1. History of Osteoarthritis: DENIES History of Rheumatoid Arthritis: DENIES 2. Height: 5 ft. 3 in. 160.0 cm. Weight: 160.8 lb. oz. 72.938 kg. Patient's BMI: 28.5 3. Vital Signs: BP: 123/72 Pulse: 80 Resp: 16 Temp: 02 Sat: 97 ECG Mon: 4. Pain Intensity: 7 5. Fall Risk: Dizziness: N Needs help standing or walking: Y Fallen in the last 3 months: N Fall risk comments: 6. Patient on Blood Thinner: None 7. History of Hypertension: Y 8. Opioid Therapy greater than 6 weeks: Y Opiate Contract Signed: 08/17/16 9. Risk Assessment Tool Provided: 1 LOW RISK 10. Functional Assessment Tool: / 11. Recreational Drug Use: Never Drug Type: Tobacco Use: Former Smoker Tobacco Type: Amount or Packs/day: How Many Years: Alcohol Use: No Frequency: Quant:
--- NOTE | 2019-06-28 14:48 | HPC ---
[facility] [address] [address] [place] [address] PAIN MANAGEMENT CONSULTATION Name: EVI HILL Room #: REG [facility] Richard.#: [id number] Admission: 06/26/19 Attend Phys: Sidra Bone Discharge: Date of : 63 Report #: [id number] THIS REPORT FOR: //name// CC: Sidra Shea MD DATE OF SERVICE: 06/26/2019 CHIEF COMPLAINT: Low back pain with lumbar radiculopathy, status post laminectomy syndrome. HISTORY OF PRESENT ILLNESS: This is a very pleasant 53-year-old female who returns to the pain clinic today for refill of her medications. She is reporting a pain score of 7/10 today. She feels that it is slightly worse since the weather has changed. Cold weather does affect her significantly. She tells me her pain is located in her lower back and her bilateral legs. It is a throbbing, aching, sharp feeling that is worse with weather changes, but her medication as well as her spinal cord stimulator which she does wear 24 hours a day, 7 days a week, are beneficial. The patient tells me that she has been having to increase some of her diabetic medications since her diabetes is not as well controlled. She is hopeful this will aid to decrease her nausea, which she has had a significant effect from her metformin. The patient also reports that one of the side effects of metformin is diarrhea. She suffers from significant constipation, still she is hopeful that this may improve some of her constipation with changing her metformin dose. ALLERGIES: DILANTIN. CURRENT LIST OF MEDICATIONS: Cymbalta 90 mg daily, gabapentin 600 mg b.i.d., OxyIR 10 mg t.i.d. p.r.n., glipizide ER 10 mg b.i.d., Colace, Protonix 40 mg daily, albuterol inhaler p.r.n., amlodipine benazepril 10/40 daily, hydrochlorothiazide 25 mg daily and metformin ER 500 mg b.i.d. PQRS: 1. She has a history of osteoarthritis in her spine and lower extremities. Denies any rheumatoid arthritis. 2. Height is 5 feet 3 inches, weight is 160, BMI is 28. 3. Vital signs, 123/72, pulse is 80, respirations 16, oxygen sat is 97. 4. Pain score is 7/10. 5. Denies dizziness. Does need help walking, uses a cane, has not fallen in the last 3 months. 6. The patient is not on any blood thinners, but does take medicine for hypertension. [address] [address] PAIN MANAGEMENT CONSULTATION Name: EVI HILL Room #: REG LET[facility]IA Emery#: [id number] Admission: 06/26/19 Attend Phys: Sidra Bone Discharge: Date of : 63 Report #: [id number] 7. Opioid therapy is greater than 6 weeks; therefore, an opioid signed contract is on the chart. Risk assessment tool is low. Functional assessment is 55/70. 8. Recreational drug use, she denies. She quit smoking about 2 months ago and she does not drink alcohol. According to the prescription monitoring system, the patient is filling appropriately for her medications. She is due to fill those this week. There is a recent drug screen on the chart that is appropriate as well. PHYSICAL EXAMINATION: GENERAL: This is a 53-year-old female who is alert and orientated. Her affect is appropriate. Placing her current pain score at 7/10 today. HEENT: Normocephalic, atraumatic. Extraocular eye muscles are intact. Mucous membranes are moist. NECK: Without adenopathy or JVD. MUSCULOSKELETAL: She uses a cane at all times, walks with a slightly antalgic gait. She has a spinal cord stimulator and battery pack in her right buttock. She has tenderness across the lumbosacral area that radiates into the lateral aspect of her bilateral legs. Her lower extremity strength judged to be 4/5 in her lower extremities. IMPRESSION: 1. Chronic pain with radiculopathy, post-laminectomy syndrome. 2. Spinal cord stimulator placement. 3. Depression. 4. High-risk medication under terms of written opioid agreement. 5. Opioid-induced constipation. 6. Diabetes mellitus. We reviewed the fact that opiate medications are being used to provide analgesia adequate to support activities of daily living, not attempting to achieve a specific pain score on the 0-10 Visual Analog Scale. The current opiate medications are providing sufficient analgesia to allow the patient to participate in activities of daily living. The patient is not exhibiting any aberrant behavior suggestive of drug diversion. The patient is not having any adverse reactions to medications. The patient is not suffering from daytime somnolence or mental acuity changes. The patient is managing opiate-induced constipation with appropriate olmd-kpw-arpoitg agents and dietary considerations. The patient was counseled on concern for caution with operating a motor vehicle while using opiate medications. A physical exam was performed and the patient's functional status was evaluated. All patients with back pain were advised against the bed rest greater than 4 days and were advised to return to normal activities. Pain score assessment was noted and the treatment plan was reviewed with the patient. All current medications, both prescribed and OTC were reviewed and reconciled on the [facility] [address] [place] [address] PAIN MANAGEMENT CONSULTATION Name: EVI HILL Room #: REG [facility] M.R.#: [id number] Admission: 06/26/19 Attend Phys: Sidra LOLY Bone Discharge: Date of : 63 Report #: [id number] electronic medical record. Tobacco screening was accomplished and smoking cessation was advised when indicated. BMI was noted and diet/exercise modification was recommended for all patients following outside normal parameters. I reviewed with the patient today their responsibilities to safeguard prescription medications, reviewed their responsibility to utilize medications only as prescribed by the physician. They are to seek and receive pain medications only from 1 physician group ( [facility]). They are to use 1 pharmacy and keep the clinic informed if they change pharmacies. Their responsibilities include making followup visits in a timely fashion and to avoid abrupt discontinuation of medication usage. Their responsibilities further include bringing their medications (bottles from the pharmacy with residual pills) to the visit for possible confirmation of pill counts and the patient understands it is their responsibility to submit to random drug screens to ensure both that the medications prescribed are present, and that no other controlled substances are present. All prescriptions provided today were generated electronically. PLAN: 1. We discussed treatment options with the patient today. The patient feels that her pain has slightly increased due to the weather changes; cold weather always impacts her pain greatly. She is here requesting refills of her OxyIR today, which she finds very beneficial as well as using her spinal cord stimulator. Scripts given for 10-mg tablets, #120, for today, 4 and 8-week release. 2. This places the patient at 60 morphine mEq a day according to the CDC guidelines. 3. Scripts are not needed for gabapentin, Cymbalta today. The patient does continue those. 4. The patient reports significant constipation. She believes this is related to her opioids. She has taken, Colace, senna, MiraLax, Metamucil, slow movement tea in the past, and diet, which she has increased her greens as well as fiber, but still has significant constipation issues, stating they are very hard and firm and painful. I will offer her a trial of Movantik 25 mg once a day, to see if this is beneficial in reducing her opioid-induced constipation. The patient recently had lab work drawn. If she does find her BUN and creatinine elevated, then I will reduce the dose to 12.5 mg. Scripts given today for the 25-mg dose, #30, with [address] Morteza Shea did see the patient today and collaborated as well. <ELECTRONICALLY SIGNED> By: Sidra Bone 06/28/19 1448 [id number] Sidra Bone /lupillo
== END ==
LOC: PAIN 06-24 13:03
DX: M96.1 Postlaminectomy syndrome, not elsewhere classified (principal); M54.16 Radiculopathy, lumbar region; F32.9 Major depressive disorder, single episode, unspecified; E11.9 Type 2 diabetes mellitus without complications; Z88.8 Allergy status to other drugs, medicaments and biological substances; Z79.899 Other long term (current) drug therapy; Z79.891 Long term (current) use of opiate analgesic

== ENCOUNTER → 2019-09-28 | Outpatient (CLI) | payer OTHER ==
[~2019-09-28] VITALS: Ht 160 cm; Wt 75.8 kg
[2019-09-28 09:31] VITALS: BP 152/82
--- NOTE | 2019-09-28 09:42 | NUR ---
Pain Clinic Assessment: 1. History of Osteoarthritis: DENIES History of Rheumatoid Arthritis: DENIES 2. Height: 5 ft. 3 in. 160.0 cm. Weight: 167.0 lb. oz. 75.751 kg. Patient's BMI: 29.6 3. Vital Signs: BP: 152/82 Pulse: 85 Resp: 16 Temp: 02 Sat: 98 ECG Mon: 4. Pain Intensity: 7 5. Fall Risk: Dizziness: N Needs help standing or walking: Y Fallen in the last 3 months: Y Fall risk comments: 6. Patient on Blood Thinner: None 7. History of Hypertension: Y 8. Opioid Therapy greater than 6 weeks: Y Opiate Contract Signed: 08/17/16 9. Risk Assessment Tool Provided: 1 LOW RISK 10. Functional Assessment Tool: / 11. Recreational Drug Use: Never Drug Type: Tobacco Use: Former Smoker Tobacco Type: Amount or Packs/day: How Many Years: Alcohol Use: No Frequency: Quant:
--- NOTE | 2019-10-02 12:41 | HPC ---
[facility] [address] [place] [address] PAIN MANAGEMENT CONSULTATION Name: EVI HILL Room #: REG LETICIA Ramos.#: [id number] Admission: 09/28/19 Attend Phys: Sidra Bone Discharge: Date of : 63 Report #: [id number] THIS REPORT FOR: cc: Magaly Cruz MD, Karla L. MD Hocker, Sidra SALCIDO ~ THIS REPORT FOR: //name// DATE OF SERVICE: 09/28/2019 CHIEF COMPLAINT: Low back pain with lumbar radiculopathy, status post laminectomy syndrome. HISTORY OF PRESENT ILLNESS: This is a very pleasant 54-year-old female who returns to the pain clinic today for refill of her medications. Today, she is reporting a pain score of 7/10, which is slightly increased. She reports she has been having more sciatica pain in the last week. She is contemplating adjusting her spinal cord stimulator. She does find this device very beneficial in controlling her pain along with her medications. She is going to waited out a few more days and see if her pain decreases with the weather changes. Today, her pain is in her lower back and radiates down her bilateral legs. It is a sharp, throbbing, aching pain, worse with prolonged standing and walking and again weather changes. She reports that her constipation is better since she has changed to a long-acting oral hypoglycemic medications from her primary care doctor. She finds that this has been beneficial and has not needed the Movantik that we were going to trial her on. Today, she would just like refills of her OxyIR tablets. ALLERGIES: DILANTIN. CURRENT LIST OF MEDICATIONS: OxyIR 10 mg b.i.d. p.r.n. Tresiba, metformin ER, Cymbalta 60 and 30 mg, gabapentin, glipizide ER, Protonix, amlodipine and hydrochlorothiazide. PQRS: 1. She has a history of arthritic changes in her spine and lower extremities. Denies any rheumatoid arthritis. 2. Height is 5 feet 3 inches, weight is 167, BMI is 29. 3. Vital Signs: 152/82, pulse is 85, respirations 16, oxygen sat is 98. 4. Pain score is 7/10. 5. Denies dizziness. Does need help walking. She uses a cane, has fallen in the last 3 months, but was not injured. 6. The patient is not on any blood thinners, but does take medicine for hypertension. Her opioid therapy is greater than 6 weeks; therefore, an opioid [address] [address] PAIN MANAGEMENT CONSULTATION Name: EVI HILL Room #: REG [facility] Yuly#: [id number] Admission: 09/28/19 Attend Phys: Sidra Bone Discharge: Date of : 63 Report #: [id number] signed contract is on the chart. 7. Risk assessment tool is low. 8. Functional assessment is 55/70. 9. Recreational drug use, she denies. She is a former smoker and has been greater than a year since she has quit and denies any alcohol use. According to the prescription monitoring system, the patient is due to fill her medications today. She is filling in a timely fashion from Dr. Morteza Shea. There is a recent drug screen on the chart that is appropriate as well. Her current morphine mEq per day according to the CDC guidelines is 60. PHYSICAL EXAMINATION: GENERAL: This is alert and orientated 54-year-old female who appears her stated age, placing her current pain score at 7/10 today. HEENT: Normocephalic, atraumatic. Extraocular eye muscles are intact. Mucous membranes are moist. NECK: Without adenopathy or JVD. MUSCULOSKELETAL: She has pain in her lumbosacral area that is radiating down her sacroiliac area, is tender on the left side greater than the right. Pain does radiate into her bilateral legs. Her lower extremity strength judged to be 4/5 in her lower extremities. She does use a cane at all times. She has an antalgic gait. She has a spinal cord battery implant in her right buttocks. IMPRESSION: 1. Chronic pain with radiculopathy, post-laminectomy syndrome. 2. Spinal cord stimulator placement. 3. Depression. 4. High risk medications under terms of written opioid agreement. 5. Diabetes mellitus. We reviewed the fact that opiate medications are being used to provide analgesia adequate to support activities of daily living, not attempting to achieve a specific pain score on the 0-10 Visual Analog Scale. The current opiate medications are providing sufficient analgesia to allow the patient to participate in activities of daily living. The patient is not exhibiting any aberrant behavior suggestive of drug diversion. The patient is not having any adverse reactions to medications. The patient is not suffering from daytime somnolence or mental acuity changes. The patient is managing opiate-induced constipation with appropriate oocz-zlk-pozdhie agents and dietary considerations. The patient was counseled on concern for caution with operating a motor vehicle while using opiate medications. PLAN: 1. We discussed treatment options with the patient today. The patient is finding her medications beneficial. She has had some slight increase in pain in the last few days. We did discuss that she is able to adjust her spinal cord [address] [address] PAIN MANAGEMENT CONSULTATION Name: EVI HILL Room #: REG [facility].#: [id number] Admission: 09/28/19 Attend Phys: Sidra Bone Discharge: Date of : 63 Report #: [id number] stimulator or wait and see if the weather changes does decrease her pain. The patient is going to do that currently, but will call [employer] if need be. 2. We will refill her oxycodone 10 mg, #120 for today for an 8-week release. These will be sent electronically by Dr. Morteza Shea. 3. The patient is not needing her gabapentin or Cymbalta refills today. 4. Her opioid-induced constipation has been relieved from changes in her diabetic medicines. She has not filled the Movantik it is at the pharmacy. I encouraged the patient to continue on the regimen she is on if she needs it; therefore, she can fill it in the future. The patient was seen in collaboration with Dr. Morteza Shea who did see the patient as well today. <ELECTRONICALLY SIGNED> By: Sidra Bone 10/02/19 [id number] [id number] Sidra Bone /nt
== END ==
LOC: PAIN 06:49
DX: M54.16 Radiculopathy, lumbar region (principal); M96.1 Postlaminectomy syndrome, not elsewhere classified; F32.9 Major depressive disorder, single episode, unspecified; E11.9 Type 2 diabetes mellitus without complications

== ENCOUNTER → 2019-12-21 | Outpatient (CLI) | payer OTHER ==
[~2019-12-21] MED LIST changes: +GABAPENTIN600 M1 PO
--- NOTE | ~2019-12-21 | HPC ---
[facility] [address] [address] [place] [address] PAIN MANAGEMENT CONSULTATION Name: EVI HILL Room #: REG [facility] M.Fabian.#: [id number] Admission: 12/21/19 Attend Phys: Sidra Bone Discharge: Date of : 63 Report #: [id number] THIS REPORT FOR: cc: Magaly Cruz MD, Karla L. MD Hocker, Amanda CNS ~ CC: Sidra Shea MD DATE OF SERVICE: 12/21/2019 This is a TeleMed appointment via [employer] audiovisual on this patient due to the COVID virus and her currently having symptoms at home, lasting from 10:45 to 11:02. CHIEF COMPLAINT: Low back pain with lumbar radiculopathy, status post laminectomy syndrome. HISTORY OF PRESENT ILLNESS: This is a very pleasant 54-year-old female who I am visiting with via [employer] on an audiovisual Telehealth conference. The patient was intended to have an in-person appointment, but has a fever and a sore throat that developed yesterday, so we altered her visit to a Telehealth visit. Today, the patient is complaining of back pain of 8/10 that is slightly higher than her normal pain. She reports that she has started coughing which has been hurting her back. She also continues to have leg pain in both her legs that radiate to her feet. It is a sharp, shooting pain. The patient states that the cold weather and standing prolonged and coughing do increase her pain. She continues to use her spinal cord stimulator as well as she finds her medications very beneficial. She denies any problems with constipation since she is on a new diabetic oral medication regimen that has helped with her ongoing constipation issues from her opioids. The patient reports that her entire body aches. She is having coughing episodes as well as a sore throat. She reports she has been in her house since the COVID lockdown started, but her grandson has been there and she believes that maybe she is sick because of him. Currently, she is staying at home per her doctor orders. ALLERGIES: DILANTIN. CURRENT LIST OF MEDICATIONS: OxyIR 10 mg p.r.n., Tresiba 30 units at bedtime, NovoLog insulin before meals, metformin ER 500 mg b.i.d., Cymbalta 60 mg, Cymbalta 30 mg, gabapentin 600 mg b.i.d., glipizide ER b.i.d., Colace, Protonix, Claritin, amlodipine, benazepril and hydrochlorothiazide. [address] [address] PAIN MANAGEMENT CONSULTATION Name: EVI HILL Room #: REG [facility] Richard.#: [id number] Admission: 12/21/19 Attend Phys: Sidra Bone Discharge: Date of : 63 Report #: [id number] PQRS: 1. She has arthritic changes in her spine and lower extremities. She denies any rheumatoid arthritis. 2. Height and weight and vital signs were deferred since it is a TeleMed appointment. The patient does not have those capabilities. 3. The patient's pain score is 8/10. 4. Denies dizziness. She does need assistance walking. She ambulated and she is using a cane. She reports she has not fallen in the last 3 months. 5. The patient is not on any medicines for blood thinners, but does take antihypertension medicines. Her opioid therapy is greater than 6 weeks; therefore, an opioid signed contract is on the chart. Her risk assessment is low. Functional assessment is 55/70. 6. Recreational drug use, she denies. She is a former smoker and does not drink alcohol. According to the prescription monitoring system, the patient is filling appropriately. She is due to fill next week for her opioid medications. According to the CDC guidelines, her morphine milligram equivalent is 60 MME per day. There is a recent drug screen on the chart and we will repeat that at her next appointment, which will be ____. PHYSICAL EXAMINATION REVIEW OF SYSTEMS: GENERAL: She is alert and orientated female that appears her stated age, placing her current pain score today at 8/10. She looks slightly pale today like she is not feeling well. HEENT: The patient complains of a sore throat, difficulty swallowing. She is able to answer all my questions appropriately. MUSCULOSKELETAL: She has pain in her lumbar spine that radiates down her bilateral legs, greater on the left than the right. She walks with an antalgic gait around her room for me today using a cane at all times. She does have a spinal cord stimulator that she uses per the patient's report 24 hours a day. IMPRESSION: 1. Chronic pain with radiculopathy, post laminectomy syndrome. 2. Spinal cord stimulator placement. 3. Depression. 4. High risk medications under terms of written opioid agreement. 5. Diabetes mellitus. 6. Possible COVID. Currently having symptoms, no positive test at this time. We reviewed the fact that opiate medications are being used to provide analgesia adequate to support activities of daily living, not attempting to achieve a specific pain score on the 0-10 Visual Analog Scale. The current opiate medications are providing sufficient analgesia to allow the patient to participate in activities of daily living. The patient is not exhibiting any aberrant behavior suggestive of drug diversion. The patient is not having any [facility] [address] [place] [address] PAIN MANAGEMENT CONSULTATION Name: EVI HILL Room #: REG [facility].#: [id number] Admission: 12/21/19 Attend Phys: Sidra Bone Discharge: Date of : 63 Report #: [id number] adverse reactions to medications. The patient is not suffering from daytime somnolence or mental acuity changes. The patient is managing opiate-induced constipation with appropriate tbhm-iae-kvekxet agents and dietary considerations. The patient was counseled on concern for caution with operating a motor vehicle while using opiate medications. PLAN: 1. We discussed treatment options via the [facility] TeleMed appointment today. The patient states her pain is slightly increased due to body aches and coughing and an 8/10, though she does find her oxycodone beneficial as well as her spinal cord stimulator. We will refill those today by Dr. Shea sending them electronically to her pharmacy for OxyIR 10 mg #120 for today for an 8-week supply. 2. The patient continues on her gabapentin, Cymbalta 30 mg and Cymbalta 60 mg. These will all be sent electronically for a 3-month supply with 3 additional refills, totaling a 1-year supply. 3. We did talk about her COVID symptoms for quite a while. The patient states her primary doctor did call her ____ amoxicillin tablets that she recently started for her sore throat. She has been on it 24 hours and has not had any relief. I encouraged the patient that if her throat continues to be sore tomorrow and she continues to have a significant cough with body aches and temperature, she may need to call the Emergency Room and be tested for COVID virus since she does have several underlying comorbidities. The patient verbalizes understanding. 4. The patient's visit completed via Telehealth with collaboration with Dr. Morteza Shea, who is here present today. By: [id number] Sidra Bone /lupillo
== END ==
LOC: TELEPC 10:11 → PAIN 10:11
DX: M54.16 Radiculopathy, lumbar region (principal); M96.1 Postlaminectomy syndrome, not elsewhere classified; E11.9 Type 2 diabetes mellitus without complications; F32.9 Major depressive disorder, single episode, unspecified; F11.20 Opioid dependence, uncomplicated

== ENCOUNTER → 2020-03-05 | Outpatient (CLI) | payer OTHER | LOC: SJCVCIMAG 02-28 09:11 | PROVIDERS: ATTEND Podiatrist Foot & Ankle Surgery | DX: I73.9 Peripheral vascular disease, unspecified (principal); M79.661 Pain in right lower leg; M79.662 Pain in left lower leg; R09.89 Other specified symptoms and signs involving the circulatory and respiratory systems ==

== ENCOUNTER → 2020-03-28 | Outpatient (CLI) | payer OTHER ==
[~2020-03-28] MED LIST changes: +NOVOLOG100 UNIT/M SUBQ
--- NOTE | 2020-03-28 11:34 | HPC ---
[facility] [address] [address] PAIN MANAGEMENT CONSULTATION Name: EVI HILL Room #: REG [facility] M..#: [id number] Admission: 03/28/20 Attend Phys: Sidra Bone Discharge: Date of : 63 Report #: [id number] THIS REPORT FOR: cc: Magaly Cruz MD, Karla L. MD Hocker, Amanda CNS ~ CC: Morteza Shea MD DATE OF SERVICE: 03/28/2020 This is a telemed appointment via [employer] audiovisual on this patient due to the COVID virus. She has a relative that is positive. She is in quarantine. She verbalizes consent for this telemed appointment from 8:55-9:10. CHIEF COMPLAINT: Low back pain with lumbar radiculopathy, status post laminectomy syndrome. HISTORY OF PRESENT ILLNESS: This is a very pleasant 54-year-old female who I am speaking with via the [employer] in regards to her visit today due to she being in quarantine due to her niece tested positive for COVID. At this time, she is not experiencing any symptoms of COVID, but she is staying home, nonetheless. She thought that she had Covid in November but was tested negative. Today, she is reporting a pain score of 6-7. She feels that most of her pain is located in her lower back, left leg that radiates down the outer part of her leg into her calf. She said the weather has increased her pain since it has been raining the last few days. Normally, walking and sitting do aggravate her as well. She feels that the medications are beneficial as well as moving. She denies any problems with constipation as a result of her opioids. The patient does report that recently since we have seen her last, she had an infection in her toes. She is a diabetic. She had an ingrown toenail and did require antibiotic treatment as well as a visit to the sales floor team leader to address her feet. She is now aware that she does need to take better care of her feet in relation to her diabetes. She does take oral and insulin medications to treat her diabetes. ALLERGIES: DILANTIN. CURRENT LIST OF MEDICATIONS: OxyIR p.r.n., Tresiba, NovoLog, metformin ER, Cymbalta 90 mg, gabapentin 600 mg b.i.d., glipizide ER, Colace, Protonix, Claritin, amlodipine, benazepril and hydrochlorothiazide. PQRS: 1. She has arthritic changes in her spine and lower [place] [address] PAIN MANAGEMENT CONSULTATION Name: EVI HILL Room #: REG [facility] Yuly#: [id number] Admission: 03/28/20 Attend Phys: Sidra Bone Discharge: Date of : 63 Report #: [id number] rheumatoid arthritis. 2. Height, weight and vital signs were deferred since this is a telemed appointment. 3. Pain score is 6-7. 4. Denies dizziness. She does not need assistance with walking. She has not fallen in the last 3 months. 5. The patient is not on any blood thinners. She does take medicines for hypertension. Her opioid therapy is greater than 6 weeks; therefore, an opioid signed contract is on the chart. Her risk assessment tool is low. Functional assessment is 55/70. 6. Recreational drug use, she denies. She is a former smoker and does not drink alcohol. According to the prescription monitoring system, the patient is filling appropriately. She is due to fill her medications today. Currently, according to the CDC guidelines, her morphine mEq is 60 MME per day. We will check a random drug screen at her next visit. Physical exam was deferred. REVIEW OF SYSTEMS: GENERAL: She is alert and orientated, appearing her stated age, placing her current pain score at 6-7. HEENT: The patient's hearing is adequate, answering all my questions appropriately. MUSCULOSKELETAL: She has pain that radiates from her lumbar spine down her left outer aspect of her leg into her calf. She has an antalgic gait, but uses a cane. She does have a spinal cord stimulator implanted that is in use 24 hours a day. IMPRESSION: 1. Chronic pain with radiculopathies post-laminectomy syndrome. 2. Spinal cord stimulator. 3. Depression. 4. Diabetes mellitus. 5. High risk medications under terms of written opioid agreement. We reviewed the fact that opiate medications are being used to provide analgesia adequate to support activities of daily living, not attempting to achieve a specific pain score on the 0-10 Visual Analog Scale. The current opiate medications are providing sufficient analgesia to allow the patient to participate in activities of daily living. The patient is not exhibiting any aberrant behavior suggestive of drug diversion. The patient is not having any adverse reactions to medications. The patient is not suffering from daytime somnolence or mental acuity changes. The patient is managing opiate-induced constipation with appropriate kcbc-tun-rniatwm agents and dietary [address] [address] PAIN MANAGEMENT CONSULTATION Name: EVI HILL Room #: REG [facility] Emery#: [id number] Admission: 03/28/20 Attend Phys: Sidra Bone Discharge: Date of : 63 Report #: [id number] considerations. The patient was counseled on concern for caution with operating a motor vehicle while using opiate medications. PLAN: 1. We discussed treatment options with the patient today. The patient believes her medicines are very beneficial allowing her to be as active as she is able, though she has been staying home through this COVID outbreak and goes out very minimally. She does safeguard her meds at all times at home. We will refill her oxycodone IR 10 mg #120 allowing her up to [address] Shea will send these electronically for today, 4-week and 8-week release. 2. The patient will continue her gabapentin and Cymbalta 90 mg. No scripts needed today. 3. Hopefully, we will see the patient in the clinic at her next appointment in 3 months. At that time, we will collect a random drug screen. The patient is seen today in collaboration via the telemed appointment with Dr. Morteza Shea. <ELECTRONICALLY SIGNED> By: Sidra Bone 03/28/20 1134 [id number] Sidra Bone /nt
== END ==
LOC: TELEPC 03-25 06:47
PROVIDERS: ATTEND Clinical Nurse Specialist Adult Health
DX: M54.16 Radiculopathy, lumbar region (principal); M96.1 Postlaminectomy syndrome, not elsewhere classified; F32.9 Major depressive disorder, single episode, unspecified; E11.9 Type 2 diabetes mellitus without complications; F11.20 Opioid dependence, uncomplicated; Z96.82 Presence of neurostimulator; Z88.8 Allergy status to other drugs, medicaments and biological substances; Z79.899 Other long term (current) drug therapy

== ENCOUNTER → 2020-06-24 | Outpatient (CLI) | payer OTHER ==
[~2020-06-24] VITALS: Ht 160 cm; Wt 77.9 kg
[2020-06-24 09:44] VITALS: BP 161/69
--- NOTE | 2020-06-24 09:58 | NUR ---
Pain Clinic Assessment: 1. History of Osteoarthritis: DENIES History of Rheumatoid Arthritis: DENIES 2. Height: 5 ft. 3 in. 160.0 cm. Weight: 171.8 lb. oz. 77.928 kg. Patient's BMI: 30.4 3. Vital Signs: BP: 161/69 Pulse: 75 Resp: 14 Temp: 02 Sat: 97 ECG Mon: 4. Pain Intensity: 7 5. Fall Risk: Dizziness: N Needs help standing or walking: N Fallen in the last 3 months: N Fall risk comments: 6. Patient on Blood Thinner: None 7. History of Hypertension: Y 8. Opioid Therapy greater than 6 weeks: Y Opiate Contract Signed: 08/17/16 9. Risk Assessment Tool Provided: 1 LOW RISK 10. Functional Assessment Tool: / 11. Recreational Drug Use: Never Drug Type: Tobacco Use: Former Smoker Tobacco Type: Amount or Packs/day: How Many Years: Alcohol Use: No Frequency: Quant:
--- NOTE | 2020-06-25 13:37 | HPC ---
[facility] [place] [address] PAIN MANAGEMENT CONSULTATION Name: EVI HILL Room #: REG [facility] M..#: [id number] Admission: 06/24/20 Attend Phys: Sidra Bone Discharge: Date of : 63 Report #: [id number] CC: Sidra Shea MD DATE OF SERVICE: 06/24/2020 CHIEF COMPLAINT: Low back pain, lumbar radiculopathy, post-laminectomy syndrome. HISTORY OF PRESENT ILLNESS: This is a pleasant 54-year-old female who returns to the pain clinic today for refills of her opioid medications. Today, she is reporting a pain score of 7/10. She believes this is slightly higher than it has been due to the weather changes since it is snowing. Today, she states that she has been overall doing better since she had her spinal cord stimulator branch sales and service representative replaced. She feels that it was malfunctioning and during that time, she was having more neuropathy in her lower extremities. Since that has been replaced she feels significantly better and also has been able to decrease her Cymbalta, taking only 30 mg a day as opposed to 90mg. She does continue her oxycodone and gabapentin as prescribed. Today, she would like refills of these medications. ALLERGIES: DILANTIN. CURRENT MEDICATIONS: OxyIR 10 mg q.i.d. p.r.n., NovoLog insulin, Cymbalta 30 mg, gabapentin 600 mg b.i.d., Tresiba, metformin ER, glipizide, Protonix, albuterol, amlodipine/benazepril and hydrochlorothiazide. PQRS: 1. She denies any osteoarthritic changes in her back or rheumatoid arthritis. 2. Height is 5 feet 3 inches, weight is 171, BMI is 30. 3. Vital signs; blood pressure 161/69, pulse is 75, respirations 14, oxygen sat is 97%. 4. Pain score is 7/10. 5. Fall risk. Denies dizziness. She uses a cane for ambulation, has not fallen in the last 3 months. 6. The patient is not on any blood thinners, but does take medicine for hypertension. 7. Her opioid therapy is greater than 6 weeks; therefore, an opioid signed contract is on the chart. Risk assessment is low. Functional assessment is 55/70. 8. Recreational drug use, she denies. She is a former smoker and does not drink alcohol. According to the prescription monitoring system, the patient is filling appropriately. She last filled her medicines on 05/28/2020. Her morphine milliequivalent according to the CDC guidelines is 60 MMEs. We will collect a random drug screen on this patient today and renew her opioid agreement. PHYSICAL EXAMINATION: GENERAL: This is alert and orientated 54-year-old female. She is a good historian. She is well-developed, well-nourished, placing her current pain score at 7/10. HEENT: Normocephalic, atraumatic. Extraocular eye muscles are intact. She does have a mask on. MUSCULOSKELETAL: She is able to move from the sitting to standing position and uses a cane with ambulation and has a slightly antalgic gait. Her pain is across her lumbar spine that does radiate into her legs bilaterally, left greater than right. She has a spinal cord stimulator implant as well. Lower extremity strength is 4/5 in all major muscle groups. IMPRESSION: 1. Chronic pain with radiculopathy, post-laminectomy syndrome. 2. Spinal cord stimulator device. 3. Chronic depression, on Cymbalta. 4. Management of high risk medications under terms of written opioid agreement. 5. Diabetes mellitus. We reviewed the fact that opiate medications are being used to provide analgesia adequate to support activities of daily living, not attempting to achieve a specific pain score on the 0-10 Visual Analog Scale. The current opiate medications are providing sufficient analgesia to allow the patient to participate in activities of daily living. The patient is not exhibiting any aberrant behavior suggestive of drug diversion. The patient is not having any adverse reactions to medications. The patient is not suffering from daytime somnolence or mental acuity changes. The patient is managing opiate-induced constipation with appropriate pnai-yos-hdafatg agents and dietary considerations. The patient was counseled on concern for caution with operating a motor vehicle while using opiate medications. A physical exam was performed and the patient's functional status was evaluated. All patients with back pain were advised against the bed rest greater than 4 days and were advised to return to normal activities. Pain score assessment was noted and the treatment plan was reviewed with the patient. All current medications, both prescribed and OTC were reviewed and reconciled on the electronic medical record. Tobacco screening was accomplished and smoking cessation was advised when indicated. BMI was noted and diet/exercise modification was recommended for all patients following outside normal parameters. I reviewed with the patient today their responsibilities to safeguard prescription medications, reviewed their responsibility to utilize medications only as prescribed by the physician. They are to seek and receive pain medications only from 1 physician group ( [facility]). They are to use 1 pharmacy and keep the clinic informed if they change pharmacies. Their responsibilities include making followup visits in a timely fashion and to avoid abrupt discontinuation of medication usage. Their responsibilities further include bringing their medications (bottles from the pharmacy with residual pills) to the visit for possible confirmation of pill counts and the patient understands it is their responsibility to submit to random drug screens to ensure both that the medications prescribed are present, and that no other controlled substances are present. All prescriptions provided today were generated electronically. PLAN: 1. We discussed treatment options with the patient today. The patient reports she was able to decrease her Cymbalta 60 mg. At times, it was making her quite sedated. She had changed at the time of administration, but still found that she was lethargic. Then, once her spinal cord stimulator was repaired due to a new branch sales and service representative, she felt that she no longer need that medication and has since stopped since our last visit. She feels that her mood is doing fine with only 30 mg and is less sedated. Today, she does not need prescription of this medication, but we will continue her on the 30 mg Cymbalta. 2. We will have Dr. Morteza Shea send her OxyIR 10 mg to her pharmacy for today, 4-week and 8-week release. The patient finds this beneficial with very minimal side effects. She does not experience constipation due to her metformin usage for her diabetes. 3. We will collect a random drug screen on this patient today and have update her opioid agreement since those have been greater than a year. The patient states she did take her medicine this morning. 4. We will see the patient back in 3 months. At that point, she will see Dr. Morteaz Shea. She has not been in our clinic since August due to the coronavirus outbreak and then having a family member with coronavirus, but she reports she did not become ill. The patient is seen today in collaboration with Dr. Morteza Shea. <ELECTRONICALLY SIGNED> By: Sidra Bone 06/25/20 1337 [id number] Sidra Bone /nt
== END ==
LOC: TELEPC 06:45 → PAIN 06:45 → TELEPC 09:45
PROVIDERS: ATTEND Clinical Nurse Specialist Adult Health
DX: M54.16 Radiculopathy, lumbar region (principal); M96.1 Postlaminectomy syndrome, not elsewhere classified; G89.29 Other chronic pain; F32.9 Major depressive disorder, single episode, unspecified; F11.20 Opioid dependence, uncomplicated; E11.9 Type 2 diabetes mellitus without complications; Z88.8 Allergy status to other drugs, medicaments and biological substances; Z79.899 Other long term (current) drug therapy

== ENCOUNTER → 2020-09-26 | Outpatient (CLI) | payer OTHER ==
[~2020-09-26] VITALS: Ht 152.4 cm; Wt 79.9 kg
[2020-09-26 09:04] VITALS: BP 158/86
--- NOTE | 2020-09-26 09:12 | NUR ---
Pain Clinic Assessment: 1. History of Osteoarthritis: DENIES History of Rheumatoid Arthritis: DENIES 2. Height: 5 ft. 0 in. 152.4 cm. Weight: 176.2 lb. oz. 79.924 kg. Patient's BMI: 34.4 3. Vital Signs: BP: 158/86 Pulse: 75 Resp: 18 Temp: 02 Sat: 97 ECG Mon: 4. Pain Intensity: 7 5. Fall Risk: Dizziness: N Needs help standing or walking: N Fallen in the last 3 months: N Fall risk comments: 6. Patient on Blood Thinner: None 7. History of Hypertension: Y 8. Opioid Therapy greater than 6 weeks: Y Opiate Contract Signed: 08/17/16 9. Risk Assessment Tool Provided: 1 LOW RISK 10. Functional Assessment Tool: / 11. Recreational Drug Use: Never Drug Type: Tobacco Use: Former Smoker Tobacco Type: Amount or Packs/day: How Many Years: Alcohol Use: No Frequency: Quant:
== END ==
LOC: PAIN 06:57
PROVIDERS: ATTEND Clinical Nurse Specialist Adult Health
DX: M54.16 Radiculopathy, lumbar region (principal); M96.1 Postlaminectomy syndrome, not elsewhere classified; F32.9 Major depressive disorder, single episode, unspecified; E11.9 Type 2 diabetes mellitus without complications; F11.20 Opioid dependence, uncomplicated

== ENCOUNTER → 2020-12-26 | Outpatient (CLI) | payer OTHER ==
[~2020-12-26] VITALS: Ht 152.4 cm; Wt 75.6 kg
[~2020-12-26] MED LIST changes: +SYNTHROID75 MC1 PO
[2020-12-26 14:24] VITALS: BP 121/76
--- NOTE | 2020-12-26 14:37 | NUR ---
Pain Clinic Assessment: 1. History of Osteoarthritis: DENIES History of Rheumatoid Arthritis: DENIES 2. Height: 5 ft. 0 in. 152.4 cm. Weight: 166.6 lb. oz. 75.569 kg. Patient's BMI: 32.5 3. Vital Signs: BP: 121/76 Pulse: 74 Resp: 16 Temp: 02 Sat: 98 ECG Mon: 4. Pain Intensity: 7 5. Fall Risk: Dizziness: Y Needs help standing or walking: Y Fallen in the last 3 months: N Fall risk comments: 6. Patient on Blood Thinner: None 7. History of Hypertension: Y 8. Opioid Therapy greater than 6 weeks: Y Opiate Contract Signed: 08/17/16 9. Risk Assessment Tool Provided: 1 LOW RISK 10. Functional Assessment Tool: / 11. Recreational Drug Use: Never Drug Type: Tobacco Use: Former Smoker Tobacco Type: Amount or Packs/day: How Many Years: Alcohol Use: No Frequency: Quant:
== END ==
LOC: PAIN 13:12
PROVIDERS: ATTEND Anesthesiology Pain Medicine
DX: G89.4 Chronic pain syndrome (principal); F32.9 Major depressive disorder, single episode, unspecified; Z79.891 Long term (current) use of opiate analgesic; Z79.899 Other long term (current) drug therapy; Z87.891 Personal history of nicotine dependence

== ENCOUNTER → 2021-03-27 | Outpatient (CLI) | payer OTHER ==
[~2021-03-27] VITALS: Ht 152.4 cm; Wt 77.1 kg
[2021-03-27 11:31] VITALS: BP 152/68
--- NOTE | 2021-03-27 11:33 | NUR ---
Pain Clinic Assessment: 1. History of Osteoarthritis: BACK History of Rheumatoid Arthritis: DENIES 2. Height: 5 ft. 0 in. 152.4 cm. Weight: 170.0 lb. oz. 77.112 kg. Patient's BMI: 33.2 3. Vital Signs: BP: 152/68 Pulse: 80 Resp: 14 Temp: 02 Sat: 98 ECG Mon: 4. Pain Intensity: 6 5. Fall Risk: Dizziness: N Needs help standing or walking: N Fallen in the last 3 months: N Fall risk comments: 6. Patient on Blood Thinner: None 7. History of Hypertension: Y 8. Opioid Therapy greater than 6 weeks: Y Opiate Contract Signed: 08/17/16 9. Risk Assessment Tool Provided: 1 LOW RISK 10. Functional Assessment Tool: 55/ 11. Recreational Drug Use: Never Drug Type: Tobacco Use: Current Some Day Smoker Tobacco Type: Amount or Packs/day: How Many Years: Alcohol Use: No Frequency: Quant:
== END ==
LOC: PAIN 01-13 12:50
PROVIDERS: ATTEND Clinical Nurse Specialist Adult Health
DX: G89.29 Other chronic pain (principal); M54.5 Low back pain; I10 Essential (primary) hypertension; E03.9 Hypothyroidism, unspecified; F17.200 Nicotine dependence, unspecified, uncomplicated; F32.9 Major depressive disorder, single episode, unspecified; Z98.1 Arthrodesis status; Z88.8 Allergy status to other drugs, medicaments and biological substances; Z79.4 Long term (current) use of insulin; Z79.891 Long term (current) use of opiate analgesic; Z79.899 Other long term (current) drug therapy

== ENCOUNTER → 2021-06-26 | Outpatient (CLI) | payer OTHER ==
[~2021-06-26] VITALS: Ht 152.4 cm; Wt 78.7 kg
[~2021-06-26] MED LIST changes: +DILTIAZEM ER180 M2 PO; +LISINOPRIL20 MG PO; +MOBIC7.5 MG PO; +ROSUVASTATIN CAL5 MG PO
[2021-06-26 10:38] VITALS: BP 170/74
--- NOTE | 2021-06-26 10:55 | NUR ---
Pain Clinic Assessment: 1. History of Osteoarthritis: BACK History of Rheumatoid Arthritis: DENIES 2. Height: 5 ft. 0 in. 152.4 cm. Weight: 173.4 lb. oz. 78.654 kg. Patient's BMI: 33.9 3. Vital Signs: BP: 170/74 Pulse: 68 Resp: 18 Temp: 02 Sat: 97 ECG Mon: 4. Pain Intensity: 8 5. Fall Risk: Dizziness: N Needs help standing or walking: Y Fallen in the last 3 months: N Fall risk comments: 6. Patient on Blood Thinner: None 7. History of Hypertension: Y 8. Opioid Therapy greater than 6 weeks: Y Opiate Contract Signed: 08/17/16 9. Risk Assessment Tool Provided: 1 LOW RISK 10. Functional Assessment Tool: / 11. Recreational Drug Use: Never Drug Type: Tobacco Use: Current Some Day Smoker Tobacco Type: Amount or Packs/day: How Many Years: Alcohol Use: No Frequency: Quant:
== END ==
LOC: PAIN 10:14
PROVIDERS: ATTEND Clinical Nurse Specialist Adult Health
DX: G89.29 Other chronic pain (principal); M96.1 Postlaminectomy syndrome, not elsewhere classified; M79.18 Myalgia, other site; E11.9 Type 2 diabetes mellitus without complications; F34.89 Other specified persistent mood disorders; Z79.4 Long term (current) use of insulin; Z88.8 Allergy status to other drugs, medicaments and biological substances; Z79.899 Other long term (current) drug therapy

== ENCOUNTER → 2021-09-25 | Outpatient (CLI) | payer OTHER ==
[~2021-09-25] VITALS: Ht 152.4 cm; Wt 78.5 kg
[2021-09-25 11:09] VITALS: BP 168/66
--- NOTE | 2021-09-25 11:18 | NUR ---
Pain Clinic Assessment: 1. History of Osteoarthritis: BACK History of Rheumatoid Arthritis: DENIES 2. Height: 5 ft. in. 152.4 cm. Weight: 173.0 lb. oz. 78.472 kg. Patient's BMI: 33.8 3. Vital Signs: BP: 168/66 Pulse: 71 Resp: 16 Temp: 02 Sat: 98 ECG Mon: 4. Pain Intensity: 8 5. Fall Risk: Dizziness: N Needs help standing or walking: Y Fallen in the last 3 months: N Fall risk comments: 6. Patient on Blood Thinner: None 7. History of Hypertension: Y 8. Opioid Therapy greater than 6 weeks: Y Opiate Contract Signed: 08/17/16 9. Risk Assessment Tool Provided: 1 LOW RISK 10. Functional Assessment Tool: 55/ 11. Recreational Drug Use: Never Drug Type: Tobacco Use: Current Some Day Smoker Tobacco Type: Amount or Packs/day: How Many Years: Alcohol Use: No Frequency: Quant:
== END ==
LOC: PAIN 09:35
PROVIDERS: ATTEND Clinical Nurse Specialist Adult Health
DX: M54.16 Radiculopathy, lumbar region (principal); G89.29 Other chronic pain; M96.1 Postlaminectomy syndrome, not elsewhere classified; E11.9 Type 2 diabetes mellitus without complications; G62.89 Other specified polyneuropathies; F34.89 Other specified persistent mood disorders; F17.200 Nicotine dependence, unspecified, uncomplicated; Z88.8 Allergy status to other drugs, medicaments and biological substances; Z79.4 Long term (current) use of insulin; Z79.899 Other long term (current) drug therapy